=== PATIENT | male | born 1945 | race Caucasian/White ===

== ENCOUNTER → 2017-01-09 | Outpatient (CLI) | payer OTHER, MEDICARE ==
[~2017-01-09] MED LIST: BNC20 PO; LRT5 PO
[2017-01-09 13:17] LABS: URINE APPEARANCE CLEAR (CLEAR); URINE BILIRUBIN NEG (NEG); URINE COLOR YELLOW; URINE EPITHELIAL CELL AUTO 0-5 /lpf (0-5); URINE NITRITE NEG (NEG); URINE PH 5.5 (4.5-7.5); UROBILINOGEN NEG (NEG); ZZUR CULT IF INDIC CLEAN CATCH NO
[2017-01-09 13:28] LABS: MANUAL MICROSCOPIC REQUIRED? NO; REVIEW REQ? NO
[2017-01-09 13:41] LABS: URINE PROTIEN/CREAT RATIO 0.1 (0-0.2); URINE TOTAL PROTEIN 10.5 mg/dl (0-11.9)
== END | disposition home or self-care (01) ==
LOC: C.LAB1850 12:06
PROVIDERS: ATTEND Internal Medicine Nephrology
DX: N18.9 Chronic kidney disease, unspecified (principal)

== ENCOUNTER → 2017-02-12 | Outpatient (CLI) | payer OTHER, MEDICARE ==
--- NOTE | 2017-02-12 10:35 | DIAGNOSTIC IMAGING REPORT ---
RENAL ULTRASOUND CLINICAL HISTORY: Chronic kidney disease. COMPARISON STUDY: None. TECHNIQUE: Sonography of the kidneys and the urinary bladder was performed. FINDINGS: The right kidney measures 11.6 cm in maximal dimension and the left measures 12.2 cm. There is no hydronephrosis. There is moderate right and mild left renal cortical thinning. Note is made of a 1.6 cm anechoic left renal lesion consistent with a cyst. No calculi or masses are identified by sonography. The ureteral jets were visualized. Bladder was unremarkable by sonography. IMPRESSION: 1. No hydronephrosis. 2. Moderate right and mild left renal cortical thinning. 3. 1.6 cm left renal cyst. Electronically signed by: Gomez Navas M.D. 02/12/2017 10:34 AM Dictated Date/Time: 02/12/2017 10:33 AM
== END | disposition home or self-care (01) ==
LOC: C.ULTR 09:45
PROVIDERS: ATTEND Internal Medicine Nephrology
DX: N18.9 Chronic kidney disease, unspecified (principal); N28.1 Cyst of kidney, acquired

== ENCOUNTER 2023-10-11 11:20 | Observation (INO) ==
--- NOTE | 2023-10-10 08:31 | Anesthesiology Consultation ---
Date of Service October 10, 2023 Assessment & Plan (1) Encounter for pre-operative examination: - Infectious disease screening: Per assessment on 10/09/23: No known infectious disease contacts or current infectious disease symptoms. No noted recent Covid positive test result. - Cardiology visit (01/17/23): "The patient is stable from cardiovascular standpoint. He demonstrates excellent control his blood pressure in the office today. His echocardiogram notes normal systolic function and a mildly dilated, but stable ascending thoracic aorta. The aortic root is now normal in dimension. Highly complex medical issues were managed and discussed today. Plan 1. Continue current medications. 2. Consider home blood pressure monitoring. 3. Continue walking program. 4. Echocardiogram prior to next visit 5. Follow-up in 1 year (patient request)." - Preop testing: No recent labs. Will order CBC, BMP for DOS. Chart Review Chart Review: Acceptable Risk for Surgery (pending preop labs DOS) and Patient NOT seen in Pre Admission Testing History Surgery Operation Date: 10/11/23 13:00 Proposed Procedures p Left Quadricep Tendon Repair - Trevon Rahman MD Height/Weight Height: 6 ft 4 in Weight: 107.048 kg Allergies Allergy/AdvReac Type Severity Reaction Status Date / Time No Known Allergies Allergy Verified 10/09/23 16:26 Medications Home Medications Medication Instructions Recorded Confirmed Last Taken ascorbic acid (vitamin C) 500 mg 500 mg PO QAM 09/17/18 10/09/23 09/21/20 08:30 tablet (Vitamin C) aspirin 81 mg tablet,delayed 81 mg PO QPM 09/17/18 10/09/23 10/01/18 18:15 release cholecalciferol (vitamin D3) 25 1,000 unit PO QPM 09/17/18 10/09/23 10/01/18 18:15 mcg (1,000 unit) capsule (Vitamin D3) multivitamin 1 tab PO QAM 09/17/18 10/09/23 09/21/20 08:30 tamsulosin 0.4 mg capsule 0.4 mg PO BID 09/17/18 10/09/23 09/21/20 08:30 naproxen sodium 220 mg tablet 220 mg PO DAILY PRN Pain, Mild 10/02/18 10/09/23 10/01/18 18:15 (Aleve) glucosamine sulfate 2KCl 1,000 mg 2,000 mg PO QAM 07/08/20 01/31/24 01/13/21 08:30 tablet (Glucosamine Relief) turmeric root extract 500 mg 500 mg PO QAM 09/15/20 10/09/23 09/21/20 08:30 capsule hydrochlorothiazide 25 mg tablet 25 mg PO QAM 10/09/23 10/09/23 Unknown losartan 100 mg tablet 100 mg PO QPM 10/09/23 10/09/23 Unknown Past Medical History Medical History Ascending aorta dilatation Follows with Dr. Perssley, monitoring Echo 12/2022: Mildly dilated ascending aorta (3.8cm in diameter) BPH (benign prostatic hyperplasia) Chronic back pain Hypertension Osteoarthritis Sleep apnea CPAP Past Family History Family History Other No family history of adverse response to anesthesia Past Surgical History Surgical History History of cataract surgery R/L History of colonoscopy History of microdiscectomy L4-L5 History of repair of left rotator cuff History of wisdom tooth extraction S/P epidural steroid injection multiple Social History Smoking Status: Former smoker Do You Dip or Chew Tobacco: No Smoking End Date: quit 1966 Hx Alcohol Use: Yes (rarely) Alcohol type: beer alcohol intake frequency: holidays/special occasions only Hx Substance Use: No substance use type: does not use Testing Electrocardiogram Date: 10/09/23 NSR at 81bpm. "Normal ECG" unconfirmed report. Echocardiogram Date: 12/20/22 EF 55-60%. No regional wall motion abnormality. Mild concentric LVH. Mild MR. Mildly dilated ascending aorta (3.8 cm in diameter). No significant change compared with study 01/04/2022 to per report.
[~2023-10-11 11:20] MED LIST changes: -BNC20 PO; +BUPIVACAINE 0.25% PF 30 ML VIAL ONE; +DEXAMETHASONE SOD INJ 4 MG/ML VIAL ONE; +EPINEPHrine INJ 1 MG/ML AMP ONE; +LACTATED RINGER'S 1,000 ML IV SCH; -LRT5 PO; +ceFAZolin 2000MG 2,000 MG/15 ML SYR IV SCH
[2023-10-11 11:56] LABS: Basophils # (auto) 0.05 K/uL (0.00-0.20); Basophils % (auto) 0.8 %; Eosinophils # (auto) 0.28 K/uL (0.00-0.50); Eosinophils % (auto) 4.3 %; Hematocrit (blood only) 42.4 % (42.0-52.0); Hemoglobin 14.5 g/dl (14.0-18.0); Immature Granulocytes # (auto) 0.02 K/uL (0.01-0.20); Immature Granulocytes % (auto) 0.3 %; Lymphocytes # (auto) 2.13 K/uL (1.20-3.40); Lymphocytes % (auto) 32.9 %; Mean Corpuscular Hemoglobin 30.7 pg (25.0-34.0); Mean Corpuscular Hgb Conc 34.2 g/dL (32.0-36.0); Mean Corpuscular Volume 89.8 fL (80.0-100.0); Mean Platelet Volume 10.8 fL (9.4-12.4); Monocytes # (auto) 0.39 K/uL (0.11-0.59); Neutrophils # (auto) 3.61 K/uL (1.40-6.50); Neutrophils % (auto) 55.7 %; Platelet Count 215 K/uL (130-400); RDW Standard Deviation 39.3 fL (36.4-46.3); Red Blood Count 4.72 M/uL (4.70-6.10); White Blood Count 6.48 K/ul (4.8-10.8)
[2023-10-11 12:15] LABS: BUN Creatinine Ratio 19.2 (10-20); Calcium 9.1 mg/dl (8.6-10.3); Creatinine Clr Calc Pharmacy 79.4 ml/min; Est GFR (African American) 79.3 ml/min; Est GFR (Non-African American) 68.4 ml/min; Potassium 3.9 mmol/L (3.5-5.1)
--- NOTE | 2023-10-11 12:46 | History & Physical Bridge Note ---
Date of Service October 11, 2023 History & Physical Bridge Note I have examined the patient, reviewed the History & Physical and in the interval since the performance of the History & Physical I have noted the following changes of clinical significance: no changes noted
[2023-10-11] MEDS ORDERED: MIDAZOLAM HCL 1 MG/ML 2ML VIAL ONE (12:56)
[2023-10-11] MEDS ORDERED: fentaNYL citrate PF 100 MCG/2 ML VIAL ONE (12:56)
[2023-10-11] MEDS ORDERED: ATROPINE SULFATE 0.1 MG/ML 10ML SYR IV PRN (12:59)
[2023-10-11] MEDS ORDERED: ONDANSETRON INJ 2 MG/ML 2 ML VIAL IV PRN ×2 (12:59→17:14)
[2023-10-11] MEDS ORDERED: ePHEDrine sulfate 50 MG/ML AMP IV PRN (12:59)
[2023-10-11] MEDS ORDERED: fentaNYL citrate PF 100 MCG/2 ML VIAL IV PRN (12:59)
--- NOTE | 2023-10-11 15:16 | Operative Report ---
Post Operative Report Pre & Post Diagnosis Operation Date: 10/11/23 13:00 Pre-Op Diagnosis: Left Quadriceps Tendon tear Post-Op Diagnosis: Same I identified the patient and participated in the time-out.: Yes Procedure Operation Date: 10/11/23 13:00 Actual Procedures p Left Knee Quadriceps Tendon Repair(Left) - Trevon Rahman MD Surgeon Trevon Rahman MD Parasitology Teacher Meseret Onofre fellow. Nela Eric physicians social work assistant. Estimated Blood Loss 5 Findings Consistent with Post-Op Diagnosis Specimens None Drains Hemovac x 1 Anesthesia Type General Regional Complications none Disposition Accompanied Patient To Recovery: No Disposition: Recovery Room Indications Karsten is 78. He injured his left quadriceps tendon. Complete tear by MRI and exam. 1 week ago. Surgery is recommended he agreed to proceed. Description of Procedure Informed consent. Patient identified. He identified the operative site as the left knee. I marked with my initials. A preoperative surgical timeout was performed. A preop dose of IV antibiotics was given. He was taken to the operating room positioned supine on the OR table. The anesthetic was administered. A tourniquet was applied to the left thigh. The leg was prepped and draped in usual sterile fashion. DVT prophylaxis with mechanical devices intraoperatively. Postoperatively mobility mechanical devices and Eliquis. There was moderate swelling of the entire left leg with moderate bruising noted in the thigh and calf especially posteriorly. The knee had an effusion in it and a palpable defect in the quadriceps tendon. Limb exsanguinated with the Esmarch. Tourniquet inflated to 275 mmHg. A 15 cm incision was made over the anterior aspect of the knee centered over the patella. Full-thickness flaps were elevated. Prepatellar bursitis was noted and debrided. Quadriceps tendon tear was identified and opened up. The knee was evacuated of hematoma. 2 Krakw weave's with #2 FiberWire were placed through the quadriceps tendon parallel to 1 another [id number] medial and lateral. The proximal pole the patella was prepared by denuding it of soft tissue and excoriating it with a rongeur and curette. Anterior osteophyte was debrided. 3 drill holes were made into the patella central medial and lateral. The 2 central limbs of the Krakw weave's were passed through the middle hole and the 2 peripheral limbs through the peripheral holes. The tourniquet was let down and meticulous hemostasis was performed. The knee was held in full extension with proximal force on the patella. The sutures were repaired up and tied together using alternating posts and half hitches. The knee was able to be flexed to 60 degrees without difficulty. Due to the bursitis there was not much viable tissue on the anterior aspect of the patella to augment the repair. Medially the disruption went into the vastus medialis which was repaired with interrupted #1 Vicryl. The same thing laterally where it got into the vastus lateralis and the lateral retinaculum which was repaired in the same fashion. Copious irrigation was performed. Meticulous hemostasis. Small divisions were made in the patellar tendon to retrieve and tied the sutures distally. Skin was closed with 0 and then 2-0 Vicryl followed by mel. The leg was cleaned with wet and dry sponges and a soft sterile dressing was applied Xeroform 4 x 4's ABD soft wrap. Casimiro wrap from the toes to the groin. Hinged brace locked in extension. Patient was awakened from anesthesia without difficulty and taken to the recovery room in stable condition. There were no specimens or complications. Counts were correct and blood loss estimated to be 5 cc. At the conclusion of the operation spoke the patient's informed her my findings and postop instructions were given. He will be admitted to the hospital. Elevation icing. He can weight-bear as tolerated with crutches or walker. Eliquis starting in the morning. He will be rehabilitated according to the quad tendon protocol. A thin leaflet of the quad tendon remained intact posteriorly. Otherwise it was 98% completely ruptured. A small calcification within the tendon stump was debrided. I attest to the content of the Intraoperative Record and any orders documented therein. Any exceptions are noted below.
--- NOTE | 2023-10-11 15:24 | Operative Report ---
Post Operative Report Pre & Post Diagnosis Operation Date: 10/11/23 13:00 Pre-Op Diagnosis: Strain of Left Quadriceps Muscle Post-Op Diagnosis: Strain of Left Quadriceps Muscle I identified the patient and participated in the time-out.: Yes Procedure Operation Date: 10/11/23 13:00 Actual Procedures p Left Knee Quadriceps Tendon Repair(Left) - Trevon Rahman MD Surgeon Trevon Rahman MD Nursing Secretary Meseret Onofre fellow. Nela Eric physicians customer care assistant. Estimated Blood Loss 5 Findings Consistent with Post-Op Diagnosis Same as postoperative diagnosis. Specimens None Description of Procedure Please see detailed operative note. I attest to the content of the Intraoperative Record and any orders documented therein. Any exceptions are noted below.
--- NOTE | 2023-10-11 16:06 | Anesthesiology Progress Note ---
Date of Service October 11, 2023 Anesthesia Post Procedure Vital Signs Vital Signs: Temp Pulse Pulse Resp BP BP Pulse Ox 10/11/23 16:00 75 12 161/92 H 97 10/11/23 15:50 67 16 160/84 H 96 10/11/23 15:40 73 13 163/87 H 99 10/11/23 15:30 73 12 157/87 H 100 10/11/23 15:23 36.3 C L 71 14 167/86 H 98 10/11/23 11:55 10/11/23 11:55 37 C 83 18 156/84 H 97 O2 Del Method O2 Flow Rate 10/11/23 16:00 Room Air 10/11/23 15:50 Room Air 10/11/23 15:40 Oxymask 4 10/11/23 15:30 Oxymask 4 10/11/23 15:23 Oxymask 6 10/11/23 11:55 Room Air 10/11/23 11:55 Room Air Pain Intensity Left Leg: Pain Intensity: 6 Transfer of Care Handoff Completed per policy Notes Mental Status: alert / awake / arousable Patient Amnestic to Procedure: Yes Nausea / Vomiting: adequately controlled Pain: adequately controlled Airway Patency, RR, SpO2: stable & adequate BP & HR: stable & adequate Hydration State: stable & adequate Anesthetic Complications: no major complications apparent
[2023-10-11] MEDS ORDERED: NALOXONE HCL 0.4 MG/1 ML VIAL/CARP IV PRN (17:14)
[2023-10-11] MEDS ORDERED: hydrALAZINE HCL 20 MG/ML VIAL IV PRN (17:14)
[2023-10-11] MEDS ORDERED: bisacodyL 10 MG SUPP PR PRN (17:14)
[2023-10-11] MEDS ORDERED: HYDROmorphone INJ 1 MG/ML SYRINGE IV PRN (17:14)
[2023-10-11] MEDS ORDERED: METOCLOPRAMIDE HCL INJ 5 MG/ML 2 ML VIAL IV PRN (17:14)
[2023-10-11] MEDS ORDERED: oxyCODONE HCL IR 5 MG TAB (IMMEDIATE RELEASE) PO PRN (17:14)
[2023-10-11] MEDS ORDERED: traMADol HCL 50 MG TABLET PO PRN (17:14)
[2023-10-11] MEDS ORDERED: HYDROmorphone INJ 0.5 MG/0.5 ML SYR IV PRN (17:14)
[2023-10-11] MEDS ORDERED: MAGNESIUM HYDROXIDE SUSP 30 ML UDC PO PRN (17:14)
[2023-10-11] MEDS: SODIUM CHLORIDE 0.9% 1,000 ML IV SCH (17:50)
[2023-10-11] MEDS: TAMSULOSIN HCL 0.4 MG CAP PO SCH (20:10)
[2023-10-11] MEDS: DOCUSATE SODIUM 100 MG CAP PO SCH (20:11)
[2023-10-11] MEDS ORDERED: SENNA 8.6 MG TAB PO SCH (21:00)
[2023-10-11] MEDS ORDERED: ASPIRIN 81 MG ECTAB PO SCH (21:00)
[2023-10-11] MEDS ORDERED: CHOLECALCIFEROL 25 MCG (1000 UNITS) TAB PO SCH (21:00)
[2023-10-11] MEDS ORDERED: LOSARTAN POTASSIUM 50 MG TAB PO SCH (21:00)
[2023-10-11] MEDS: ceFAZolin 2000MG 2,000 MG/15 ML SYR IV SCH (21:49)
[2023-10-11] MEDS: ACETAMINOPHEN 500 MG TAB PO SCH (21:49)
--- OUTSIDE RECORDS SUMMARY | 2023-10-12 00:55 | External Medical Summary | Continuity of Care Document ---
Author Name Unknown Organization [facility] [address] [place], [place] [address] Address [address] [place] [id number] Care Team Providers Care Peanut Butter Maker Name Role Phone Chau Yusuf Primary Care Physician [phone] Encounter [facility] [id number] Date(s): 10/07/23 - 10/07/23 [facility] [address] [id number] [facility] [address] [place] [id number] Encounter Diagnosis Rupture of distal quadriceps muscle(Discharge Diagnosis) - 10/07/23 Discharge Disposition: Home or Self Care Attending Physician: RORY Reinoso, Ivory Allergies, Adverse Reactions, Alerts No Known Medication Allergies Medications amLODIPine 2.5 mg oral tablet Start: 08/08/21 15:54:00 EST Start Date: 08/08/21 Status: Ordered aspirin 81 mg oral delayed release tablet Start: 10/21/17 12:54:00 Start Date: 10/21/17 Status: Ordered Eliquis 2.5 mg oral tablet Start: 10/09/23 14:26:00 EST, 1 tab, PO, bid, Disp# 28 tab, Refills: 1, Pharmacy: [facility]/pharmacy #[id number], Earliest Fill Date: 10/09/23 Start Date: 10/09/23 Stop Date: 10/25/23 Status: Ordered Medrol Dosepak 4 mg oral tablet Start: 03/14/20 13:33:00 EDT, See Instructions, Disp# 21 tab, Take as directed on package labeling for 6 days., Pharmacy: [facility]/pharmacy #[id number] Start Date: 03/14/20 Stop Date: 03/20/20 Status: Ordered Multi Vitamin+ Start: 10/21/17 12:53:00 Start Date: 10/21/17 Status: Ordered Naprosyn 500 mg oral tablet Start: 10/21/17 13:29:00, 1 tab, PO, bid, Disp# 50 tab, Refills: 1, PRN: as needed for pain, Pharmacy: [facility]/pharmacy #[id number] Start Date: 10/21/17 Status: Ordered Southold-3 oral capsule Start: 10/21/17 12:53:00 Start Date: 10/21/17 Status: Ordered oxyCODONE 5 mg oral tablet Start: 10/09/23 14:24:00 EST, See Instructions, Disp# 10 tab, Refills: 0, 1-2 tabs po every 4-6 hours, Note to Pharmacy: initial therapy, PRN: as needed for pain, Stop: 10/14/23 14:25:00 EST, Pharmacy: [facility]/pharmacy #[id number], Earliest Fill Date: 10/09/23 Start Date: 10/09/23 Stop Date: 10/14/23 Status: Ordered tamsulosin 0.4 mg oral capsule Start: 10/21/17 12:53:00 Start Date: 10/21/17 Status: Ordered turmeric Start: 09/15/20 8:34:00 EST Start Date: 09/15/20 Status: Ordered Vitamin A, D oral capsule Start: 10/21/17 12:54:00 Start Date: 10/21/17 Status: Ordered Vitamin C Start: 10/21/17 12:53:00 Start Date: 10/21/17 Status: Ordered Mental Status 10/07/23 Barriers to Learning one year None evide nt Mandatory Health Literacy Documentation Yes Health Literacy Communication Barriers N ever Primary Language Tunisian Problem List Condition Confirmation Course Effective Dates Status H ealth Status Informant Right hip pain Confirmed Active Inflammation of right sacroiliac joint. Confirmed Active Lumbago Confirmed Active Lumbar radiculopathy Confirmed Active Left leg pain Confirmed Active Quadriceps tendon rupture Confirmed Active Diagnosis Diagnosis Type Effective Dates Health Status Clinical Service Informant Rupture of distal quadriceps muscle Discharge Diagnosis 10/07/23 Vital Signs Most recent to oldest [Reference Range]: 1 Height 193 cm (10/07/23 2:57 PM) Patient Weight 108.8 kg (10/07/23 2:57 PM) Body Mass Index 29.21 kg/m2 (10/07/23 2:57 PM) Social History Social History Type Response Smoking Status Never smoked cigaret lily Sex Male Patient Care team information Care Team Personnel Name: MD Yusuf Brandon M Position: Referring Member Role: Primary Care Provider Address: Address: [facility]-[address], [address] [place] [address] [place] Care Team Related Persons Name: MORELIA GROVER Address: home [address] [place] [address] [facility] [phone]
[2023-10-12] MEDS: SODIUM CHLORIDE 0.9% 1,000 ML IV SCH (03:49)
[2023-10-12] MEDS: ACETAMINOPHEN 500 MG TAB PO SCH ×2 (05:34→13:32)
[2023-10-12] MEDS: ceFAZolin 2000MG 2,000 MG/15 ML SYR IV SCH (05:34)
[2023-10-12 07:15] LABS: Hematocrit (blood only) 35.4 % (42.0-52.0); Hemoglobin 12.5 g/dl (14.0-18.0); Mean Corpuscular Hgb Conc 35.3 g/dL (32.0-36.0); Mean Corpuscular Volume 87.8 fL (80.0-100.0); Mean Platelet Volume 11.4 fL (9.4-12.4); Platelet Count 208 K/uL (130-400); RDW Coefficient of Variation 11.9 % (11.5-14.5); RDW Standard Deviation 38.5 fL (36.4-46.3); Red Blood Count 4.03 M/uL (4.70-6.10); White Blood Count 12.15 K/ul (4.8-10.8)
[2023-10-12 07:26] LABS: Creatinine Clr Calc Pharmacy 82.5 ml/min; Est GFR (African American) 83.2 ml/min; Est GFR (Non-African American) 71.8 ml/min; Potassium 4.1 mmol/L (3.5-5.1)
[2023-10-12] MEDS: DOCUSATE SODIUM 100 MG CAP PO SCH (07:57)
[2023-10-12] MEDS: TAMSULOSIN HCL 0.4 MG CAP PO SCH (07:57)
[2023-10-12] MEDS ORDERED: hydroCHLOROthiazide 25 MG TAB PO SCH (09:00)
[2023-10-12] MEDS ORDERED: APIXABAN 2.5 MG TAB PO SCH (09:00)
[2023-10-12] MEDS ORDERED: ASCORBIC ACID 500 MG TAB PO SCH (09:00)
[2023-10-12] MEDS ORDERED: MULTIVITAMIN TAB PO SCH (09:00)
[2023-10-12] MEDS ORDERED: NON-FORMULARY MEDICATION (Turmeric Root Extract 500 mg Capsule) PO SCH (09:00)
--- NOTE | 2023-10-12 17:56 | Orthopedic Progress Note ---
Date of Service October 12, 2023 Assessment & Plan (1) Quadriceps tendon rupture: Plan: Doing well. Drain pulled. Stable for discharge. Reviewed follow-up. Medications and activities. He will be on Eliquis pain medicine and stool softener as well as resume his regular medications. He will follow-up next week. Elevate foot above heart. Ice. Leave brace intact. Do not walk without brace crutches or walker. Set up physical therapy. Surgical results are discussed. If there is any problems with pain fevers swelling tingling numbness or any other problems or questions call the office or go to the emergency room. Admission and Anticipated Discharge Date Admission Date: October 11, 2023 Subjective Doing well. Pain well-controlled. Up with PT. Physical Exam Physical Exam: Brace adjusted as it felt tight. Drain is pulled. DP and PT pulses are 2+. Sensation intact in the foot. 5 out of 5 ankle and toe plantarflexion dorsiflexion inversion eversion strength. Dressing is clean and dry. Results & Data Vital Signs (Past 12 Hours) Vital Signs Temp Pulse Pulse Resp BP Pulse Ox O2 Del Method 10/12/23 11:00 77 20 117/68 94 Room Air 10/12/23 07:15 36.4 C L 78 18 144/67 H 95 Room Air Laboratory Results 10/12/23 Range/Units 06:41 WBC 12.15 H (4.8-10.8) K/ul RBC 4.03 L (4.70-6.10) M/uL Hgb 12.5 L (14.0-18.0) g/dl Hct 35.4 L (42.0-52.0) % MCV 87.8 (80.0-100.0) fL MCH 31.0 (25.0-34.0) pg MCHC 35.3 (32.0-36.0) g/dL RDW Std Deviation 38.5 (36.4-46.3) fL RDW Coeff of Abdi 11.9 (11.5-14.5) % Plt Count 208 (130-400) K/uL MPV 11.4 (9.4-12.4) fL Sodium 138 (136-145) mmol/L Potassium 4.1 (3.5-5.1) mmol/L Chloride 106 (98-107) mmol/L Carbon Dioxide 26 (21-32) mmol/L Anion Gap 6 (3-11) BUN 25 H (6-23) mg/dl Creatinine 1.00 (0.6-1.4) mg/dl Est Cr Clr Drug Dosing 82.5 ml/min Est GFR ( Amer) 83.2 ml/min Est GFR (Non-Af Amer) 71.8 ml/min BUN/Creatinine Ratio 25.0 H (10-20) Glucose 284 H (70-99(Fasting)) mg/dl Calcium 8.0 L (8.6-10.3) mg/dl
--- OUTSIDE RECORDS SUMMARY | 2023-10-12 18:01 | External Medical Summary | Continuity of Care Document ---
Author Name Unknown Organization [facility] [id number] Address [address] [place] [address] [phone] Care Team Providers Care Trading Assistant Name Role Phone Chau Yusuf Primary Care Physician [phone] [id number] Date(s): 10/09/23 - 10/09/23 [facility] [address] [id number] [facility] [address] [place] [id number] Encounter Diagnosis Quadriceps tendon rupture(Discharge Diagnosis) - 10/09/23 Discharge Disposition: Home or Self Care Attending Physician: MD Josiah, Trevon Lanza Referring Physician: MD Josiah, Trevon Lanza Allergies, Adverse Reactions, Alerts No Known Medication Allergies Medications amLODIPine 2.5 mg oral tablet Start: 08/08/21 15:54:00 EST Start Date: 08/08/21 Status: Ordered aspirin 81 mg oral delayed release tablet Start: 10/21/17 12:54:00 Start Date: 10/21/17 Status: Ordered Eliquis 2.5 mg oral tablet Start: 10/09/23 14:26:00 EST, 1 tab, PO, bid, Disp# 28 tab, Refills: 1, Pharmacy: [facility]/pharmacy #[id number], Earliest Fill Date: 10/09/23 Start Date: 10/09/23 Stop Date: 10/25/23 Status: Ordered Medrol Dosepak 4 mg oral tablet Start: 03/14/20 13:33:00 EDT, See Instructions, Disp# 21 tab, Take as directed on package labeling for 6 days., Pharmacy: [facility]/pharmacy #[id number] Start Date: 03/14/20 Stop Date: 03/20/20 Status: Ordered Multi Vitamin+ Start: 10/21/17 12:53:00 Start Date: 10/21/17 Status: Ordered Naprosyn 500 mg oral tablet Start: 10/21/17 13:29:00, 1 tab, PO, bid, Disp# 50 tab, Refills: 1, PRN: as needed for pain, Pharmacy: [facility]/pharmacy #[id number] Start Date: 10/21/17 Status: Ordered [place]-3 oral capsule Start: 10/21/17 12:53:00 Start Date: 10/21/17 Status: Ordered oxyCODONE 5 mg oral tablet Start: 10/09/23 14:24:00 EST, See Instructions, Disp# 10 tab, Refills: 0, 1-2 tabs po every 4-6 hours, Note to Pharmacy: initial therapy, PRN: as needed for pain, Stop: 10/14/23 14:25:00 EST, Pharmacy: [facility]/pharmacy #[id number], Earliest Fill Date: 10/09/23 Start Date: 10/09/23 Stop Date: 10/14/23 Status: Ordered tamsulosin 0.4 mg oral capsule Start: 10/21/17 12:53:00 Start Date: 10/21/17 Status: Ordered turmeric Start: 09/15/20 8:34:00 EST Start Date: 09/15/20 Status: Ordered Vitamin A, D oral capsule Start: 10/21/17 12:54:00 Start Date: 10/21/17 Status: Ordered Vitamin C Start: 10/21/17 12:53:00 Start Date: 10/21/17 Status: Ordered Mental Status 10/09/23 Barriers to Learning one year None evide nt Mandatory Health Literacy Documentation Yes Health Literacy Communication Barriers N ever Primary Language Nepali Problem List Condition Confirmation Course Effective Dates Status H ealth Status Informant Right hip pain Confirmed Active Inflammation of right sacroiliac joint. Confirmed Active Lumbago Confirmed Active Lumbar radiculopathy Confirmed Active Left leg pain Confirmed Active Quadriceps tendon rupture Confirmed Active Diagnosis Diagnosis Type Effective Dates Health Status Clinical Service Informant Quadriceps tendon rupture Discharge Diagnosis 10/09/23 Procedures Procedure Date Related Diagnosis Body Site Status Repair of quadriceps tendon 1 10/11/23 Completed 1Left Vital Signs Most recent to oldest [Reference Range]: 1 Height 193 cm (10/09/23 12:54 PM) Patient Weight 108 kg (10/09/23 12:54 PM) Body Mass Index 28.99 kg/m2 (10/09/23 12:54 PM) Temperature [36.5-37.9 DegC] 36.6 DegC (10/09/23 12:54 PM) Heart Rate 78 bpm (10/09/23 12:54 PM) Respiratory Rate 18 br/min (10/09/23 12:54 PM) Blood Pressure 140/78mmHg (10/09/23 12:54 PM) Cuff Pulse Pressure 62 mmHg (10/09/23 12:54 PM) Social History Social History Type Response Smoking Status Never smoked cigaret lily Sex Male Cardiology * Contributor_system, [id number]: VERIFY, PERFORM Event Display: EKG Authored Date: [id number] Please click on link to see image. Pre-OP H & P * RORY Eric, Nela R: MODIFY, PERFORM Event Display: Pre-OP H & P Authored Date: [id number] Name:BRAYDON GROVER Patient Number:[id number] :1945 Date of Service:10/09/2023 Chief Complaint preop left quad tendon tear History of Present Illness Bette Altman presents today forevaluation of left knee injury which occurred October 04.. The patient was walking outside on mud and snow with smooth-bottomed sneakerswhich caused hisleft knee to collapse on 10/04/2023. He states that his knee felt that it would give out, which caused him to attempt to hold it in place. He was not seen in the ER, and met with Ivory Reinoso on 10/07/2023. He states that weightbearing causes him to have instability. The patient has been taking 81mg of aspirin. He states that his health is overall good. The patient has an enlarged prostate. The patient is seeing a Urologist soon for this issue. The patient had micro-disc surgery and two wrist fractures previously. Review of Systems Denies any recent cough, cold, fevers, chills or flulike symptoms. He denies any lightheadedness, dizziness, syncopal episodes, headaches, migraines or seizures. Denies any bleeding or clotting disorders or history of DVT or pulmonary embolism. Denies any recent hospitalizations. Denies any historyof metal sensitivity, latex allergy or MRSA. Denies any shortness of breath or chest pain. Denies abdominal pain, heartburn, indigestion, nausea, vomiting, diarrhea or constipation. Denies any urinary tract infections. Denies any hearing or vision changes. Denies any dental problems. He does have an enlarged prostate, currently being worked up. Does cause some urinary retention. Physical Exam Vitals & Measurements T:36.6C HR:78(Monitored) RR:18 BP:140/78 SpO2:95% HT:193cm WT:108kg WT:108.000kg(Dosing) BMI:28.99 Vitals:Last Updated 10/09/23 12:54 Date Temp BP Location Pulse RR SpO2 Pain 10/09/23 36.6 140/78 78 18 95 6 10/07/23 7 05/02/23 142/80 75 97 Height and Weight:Last Updated 10/09/23 12:54 Date BMI Wt(kg) Wt(lb) Method Ht(cm) (ft-in) Method 10/09/23 28.99 108 238 Standing Scale 193 6-4 10/07/23 29.21 108.8 239 Standing Scale 193 6-4 Standing 04/01/23 28.19 105 231 Standing Scale 193 6-4 General:Well-dressed, well-nourished. Normal mood and affect. Alert and oriented x3. HEENT:Head: Atraumatic, normocephalic. Eyes: Extraocular movements intact, pupils equal round and reactive to light, sclera normal. Ears: Ears grossly normal, TMs are clear normal light reflex.Nose: Nares are patent bilaterally. Throat: Oropharynx clear mucous membranes moist good dentition uvula midline. Neck:Supple, no lymphadenopathy, nontender palpation, full range of motion. Cardiac:Regular rate and rhythm, normal S1, S2. No murmurs, rubs or gallops appreciated. Lungs:Clear to auscultation bilaterally. No adventitious sounds. No accessory muscle use. Abdomen:Soft, nontender, nondistended, normal bowel sounds heard in all 4 quadrants. Extremities: Focusing on the patient'sLEFTlower extremity: TraceDP andTracePT pulses Capillary refill less than 2 seconds Sensationintact to light touch Straight leg raise with significant lag. There is extensive bruising present. Inability and weakness to extend the right knee. Knee (left)ROM: 0/ 0/ 100 ModerateEffusion 1+ pretibial edema Ligament exam: ACLIntact,Endpoint intact PCLIntact,Endpoint intact MCLIntact,Endpoint intact LCLIntact,Endpoint intact Tenderness at the medial and lateral retinaculum Tenderness at the superior pole of the patella Palpable quad defect Posterior drawer intact Diagnostic Results X-ray imaging: I reviewed X-Rays of theEDUARDO Knee from 10/07/2023 which shows Anterior patellar spurring. Ossicle by superiorpatella by 1cm. There is swelling at thesuperior pole. No fracture or arthritis. MRI reviewed. Near completequadriceps tendon rupture with retraction. Report noted. There is some meniscal pathology present andsome ligament strains as well. Assessment/Plan 1.Quadriceps tendon rupture Patient is scheduled for a left knee quadriceps tendon repair with Dr. Rahman on October 11, 2023. Risk and complications of the procedure were explained to the patient and include but are not limited to infection, pain, bleeding, scarring, nerve or blood vessel damage, wound problems, weakness, stiffness, incomplete relief of symptoms, hardware failure, rerupture, tendon or ligament injury,blood clots, embolisms, heart attack, stroke or . All questions were answered and informed consent was obtained by Dr. Rahman. He does not need any preoperative laboratory work or medicalclearance prior to surgery. We did perform an EKG today in the office. He was given a prescription for oxycodone for use for postoperative pain control. The [place] PDMP was checked with no issues identified. This electronically sent to his pharmacy. He we will also use Eliquis 2.5 mg p.o. twice daily for DVT prophylaxis for 2 to 4 weeks after surgery. This prescription was electronically sent to his pharmacy. Postoperative course was discussed. He will follow-up with myself on October 15 at 11:30 AM for a dressing change. He is going to do outpatient physical therapy closer to home. He is in a knee immobilizer and using a walker. He was instructed on usage of the CHG wipes. All questions were answered. He understands and agrees with the plan. This chart was completed utilizing [employer] voice recognition software. Grammatical errors, random word insertions, pronoun errors, and in complete sentences are an occasional consequence of the system. Any questions or concerns about the content, text, or information contained within the body of this dictation should be addressed directly to the provider for clarification. Problem List/Past Medical History Ongoing Inflammation of right sacroiliac joint. Left leg pain Lumbago Lumbar radiculopathy Quadriceps tendon rupture Right hip pain HTN Sleep Apnea with use of CPAP GERD Procedure/Surgical History Micro-disc surgery Cataract surgery Medications Home amLODIPine(amLODIPine 2.5 mg oral tablet) apixaban(Eliquis 2.5 mg oral tablet), 2.5 mg= 1 tab, PO, bid, 1 refills ascorbic acid(Vitamin C) aspirin(aspirin 81 mg oral delayed release tablet) methylPREDNISolone(Medrol Dosepak 4 mg oral tablet), See Instructions multivitamin(Multi Vitamin+) multivitamin(Vitamin A, D oral capsule) naproxen(Naprosyn 500 mg oral tablet), 500 mg= 1 tab, PO, bid, PRN, 1 refills omega-3 polyunsaturated fatty acids([place]-3 oral capsule) oxyCODONE(oxyCODONE 5 mg oral tablet), See Instructions, PRN tamSULOsin(tamsulosin 0.4 mg oral capsule) turmeric Allergies No Known Medication Allergies Social History Smoking Status Never smoked cigarettes Denies ETOH use. Denies recreational drug use. Lives with . Electronic Signature on File Electronically Reviewed/Signed by: Nela Eric PA-C Author Signature Dt/Tm:10/10/2023 09:16AM Division of Sports Medicine Electronically Reviewed/Signed by: Trevon Rahman MD Cosigner Signature Dt/Tm: 10/10/2023 03:53 PM Division of Sports Medicine [facility] Ortho Outpt Note * Juan Alvarado: MODIFY, MODIFY, MODIFY, MODIFY, MODIFY, MODIFY, PERFORM MD Josiah, Trevon Lanza: MODIFY Event Display: Ortho Outpt Note Authored Date: [id number] Name:BRAYDON GROVER Patient Number:[id number] :1945 Date of Service:10/09/2023 CHIEF COMPLAINT: Discussion of LEFT quadricepssurgery on 10/11/2023 HPI: Bette Altman presents today forevaluation of left knee injury which occurred October 04.. The patient was walking outside on mud and snow with smooth-bottomed sneakerswhich caused hisleft knee to collapse on 10/04/2023. He states that his knee felt that it would give out, which caused him to attempt to hold it in place. He was not seen in the ER, and met with Ivory Reinoso on 10/07/2023. He states that weightbearing causes him to have instability. Thepatient has been taking 81mg of aspirin. He states that his health is overall good. The patient has an enlarged prostate. The patient is seeing a Urologist soon for this issue. The patient had micro-disc surgery and two wrist fractures previously. ROS: Refer to the HPI. The patient has not had a history of MRSA, STAPH infections, DM, or Cancer. No bleeding blood clots. PHYSICAL EXAM: Focusing on the patient'sLEFTlower extremity: TraceDP andTracePT pulses Capillary refill less than 2 seconds Sensationintact to light touch Straight leg raise with significant lag. There is extensive bruising present. Inability and weakness to extend the right knee. Knee (left)ROM: 0/ 0/ 100 ModerateEffusion 1+ pretibial edema Ligament exam: ACLIntact,Endpoint intact PCLIntact,Endpoint intact MCLIntact,Endpoint intact LCLIntact,Endpoint intact Tenderness at the medial and lateral retinaculum Tenderness at the superior pole of the patella Palpable quad defect Posterior drawer intact RADIOGRAPHY: X-ray imaging: I reviewed X-Rays of theEDUARDO Knee from 10/07/2023 which shows Anterior patellar spurring. Ossicle by superiorpatella by 1cm. There is swelling at thesuperior pole. No fracture or arthritis. MRI reviewed. Near completequadriceps tendon rupture with retraction. Report noted. There is some meniscal pathology present andsome ligament strains as well. IMPRESSION: 78 year old male with left kneequadriceps tendon rupture PLAN: Patient should only walk with the brace on, and use his walker. LATISHA. The patient has elected to proceed with surgical interventionat this time, Left knee quadriceps tendon repair. Patient was educated about surgical procedure, and treatment options were discussed, as well as risks, benefits and the recovery process. The patient hasno issues withbleeding, blood clots, staph infections or MRSA. Discussed with the patient that he would be using Eliquis after surgery. He has been taking aspirin daily. Calf nontender. Informed consent was obtained, and the patient signed a consent form for Left knee quadriceps tendon repair. -Follow up as scheduled. ATTESTATION: Juan Taylor, have scribed for, and in the presence of, Trevon Rahman, on this date,10/09/2023 13:20:29. Electronic Signature on File Electronically Reviewed/Signed by: Juan Alvarado Author Signature Dt/Tm:10/09/2023 02:11 PM Electronically Reviewed/Signed by: Trevon Rahman MD Cosigner Signature Dt/Tm: 10/09/2023 03:02 PM Division of Sports Medicine BF Patient Care team information Care Team Personnel Name: MD Yusuf Brandon M Position: Referring Member Role: Primary Care Provider Address: Address: [facility], [address] [place] [address] [place] Care Team Related Persons Name: MORELIA GROVER Address: home [address] [place] [address] [phone]
--- NOTE | 2023-10-15 16:48 | Discharge Summary ---
Date of Service October 15, 2023 Admission HPI Per Admitting Provider He says that on Saturday he fell and his knee got caught behind him and was hyperflexed. He immediately knew something was wrong. He has had pain, swelling, bruising and difficulty ambulating. He feels like his knee is unstable. He is having difficulty moving his knee. Admission Exam Per Admitting Provider Patient has moderate swelling, bruising. Palpable defect over quad tendon. Pt unable to fully bear weight or extend his knee. Principal Diagnosis Left quadriceps tendon repair Discharge Exam Brace adjusted as it felt tight. Drain is pulled. DP and PT pulses are 2+. Sensation intact in the foot. 5 out of 5 ankle and toe plantarflexion dorsiflexion inversion eversion strength. Dressing is clean and dry. Discharge Data Allergies Allergy/AdvReac Type Severity Reaction Status Date / Time No Known Allergies Allergy Verified 10/11/23 11:51 Procedures Performed Operation Date: 10/11/23 13:00 Actual Procedures p Left Knee Quadriceps Tendon Repair(Left) - Trevon Rahman MD Ordered Studies 10/11/23 05:00 US - OR guided needle placemen Routine Hospital Course (1) Quadriceps tendon rupture: Doing well. Drain pulled. Stable for discharge. Reviewed follow-up. Medications and activities. He will be on Eliquis pain medicine and stool softener as well as resume his regular medications. He will follow-up next week. Elevate foot above heart. Ice. Leave brace intact. Do not walk without brace crutches or walker. Set up physical therapy. Surgical results are discussed. If there is any problems with pain fevers swelling tingling numbness or any other problems or questions call the office or go to the emergency room. Total Time Total Time Spent Total Time Spent (In Minutes): 10 minutes documenting Discharge Plan Discharge Items Patient Disposition: Home - Self-Care Reason For Visit: POST OP LEFT KNEEE QUADRICEPS TENDON REPAIR Discharge Diagnosis: left quadriceps tendon tear Activity: Per Instructions section Weightbearing Comment: with brace on at all times; lock straight, with crutches or walker Non-emergency contact: Surgeon Call non-emergency contact if: you have any medication questions, your symptoms worsen, your pain is not controlled, your temperature is above 101, your wound has increased redness and your wound has increased drainage Follow-up/Referrals: Nela Eric PA-C [Physician [place]] - 10/15/23 11:30 am Chau Yusuf [Primary Care Provider] - Diet: Regular Addtl Attending Provider Instructions: DIET: * Resume previous diet. MEDICATIONS: * Please take your prescriptions as instructed at your pre-op appointment and/or see medication discharge instructions listed above. * If concerns develop, call your physician's office at . SPECIAL CARE INSTRUCTIONS: * Ice to left knee as needed for pain/swelling * Elevate left leg above heart to relieve pain/swelling. * Keep brace on left leg at all times * You may put weight on your left leg as tolerated with brace in place. * Use crutches or walker at all times with walking. * Keep dressing clean, dry, intact until your follow up appointment. * Allowed for full ankle range of motion left ankle and left hip. * Your surgical extremity may be discolored due to prepping agents used on the skin. A bluish-green tint is a normal variant and should not cause alarm. Call your doctor at [phone] if: * Temperature above 101 degrees * Pain not relieved by pain medicine ordered * There is increased drainage or redness from any incision * You have any unanswered questions, problems or concerns. FOLLOW UP VISIT: * If not already scheduled, please call the office at to schedule a follow-up appointment. Pending Studies at Discharge: No Stand-Alone Forms: My [facility] Medications and DC Order Prescriptions: Continued multivitamin Tablet 1 tab PO QAM aspirin 81 mg Tablet,Delayed Release (Dr/Ec) 81 mg PO QPM ascorbic acid (vitamin C) [Vitamin C] 500 mg Tablet 500 mg PO QAM tamsulosin 0.4 mg Capsule 0.4 mg PO BID cholecalciferol (vitamin D3) [Vitamin D3] 1,000 unit Capsule 1,000 unit PO QPM glucosamine sulfate 2KCl [Glucosamine Relief] 1,000 mg Tablet 2,000 mg PO QAM turmeric root extract 500 mg Capsule 500 mg PO QAM hydrochlorothiazide 25 mg Tablet 25 mg PO QAM losartan 100 mg Tablet 100 mg PO QPM Held naproxen sodium [Aleve] 220 mg Tablet 220 mg PO DAILY PRN (Reason: Pain, Mild) Hold Instructions: Resume on 10/26/23. hold until completed with Eliquis Discharge Orders: Discharge Order (Routine); Ordered 10/12/23 Ordered By: Trevon Ortiz/Other Patient Handouts: DVT Post Op Prevention Admission Data Admit Date/Time: 10/11/23 15:28 Attending Provider: Trevon Rahman Admit Provider: Trevon Rahman Primary Care Provider: Chau Yusuf Other Interventions: Discharge Summary Assessment (RN) Last Done: 10/12/23 17:59
== END 2023-10-12 18:36 | disposition home or self-care (01) ==
LOC: ASU 11:20 → 3W 11:20

== ENCOUNTER 2024-02-28 12:33 | Inpatient (IN) ==
[2024-02-28 13:20] LABS: Basophils # (auto) 0.03 K/uL (0.00-0.20); Basophils % (auto) 0.2 %; Eosinophils # (auto) 0.01 K/uL (0.00-0.50); Eosinophils % (auto) 0.1 %; Hematocrit (blood only) 40.9 % (42.0-52.0); Hemoglobin 14.5 g/dl (14.0-18.0); Immature Granulocytes # (auto) 0.06 K/uL (0.01-0.20); Immature Granulocytes % (auto) 0.4 %; Lymphocytes % (auto) 7.4 %; Mean Corpuscular Hemoglobin 30.7 pg (25.0-34.0); Mean Corpuscular Hgb Conc 35.5 g/dL (32.0-36.0); Mean Corpuscular Volume 86.7 fL (80.0-100.0); Mean Platelet Volume 11.3 fL (9.4-12.4); Monocytes # (auto) 1.05 K/uL (0.11-0.59); Monocytes % (auto) 6.5 %; Neutrophils # (auto) 13.87 K/uL (1.40-6.50); Neutrophils % (auto) 85.4 %; Platelet Count 159 K/uL (130-400); RDW Coefficient of Variation 12.5 % (11.5-14.5); RDW Standard Deviation 39.6 fL (36.4-46.3); Red Blood Count 4.72 M/uL (4.70-6.10); White Blood Count 16.22 K/ul (4.8-10.8)
[2024-02-28 13:42] LABS: Albumin Level 3.8 gm/dl (3.4-5.0); Anion Gap 7 (3-11); Bilirubin,Total 0.9 mg/dl (0.2-1.0); Calcium 9.6 mg/dl (8.6-10.3); Carbon Dioxide 27 mmol/L (21-32); Chloride 99 mmol/L (98-107); Magnesium 1.9 mg/dl (1.7-2.4); Potassium 3.4 mmol/L (3.5-5.1); Sodium 133 mmol/L (136-145)
[2024-02-28 13:48] LABS: Alanine Aminotransferase 20 U/L (7-52); Albumin Globulin Ratio 1.1 (0.9-2); Alkaline Phosphatase 75 U/L (34-104); Aspartate Aminotransferase 21 U/L (13-39); BUN Creatinine Ratio 29.6 (10-20); Blood Urea Nitrogen 40 mg/dl (6-23); Est GFR (African American) 57.9 ml/min; Est GFR (Non-African American) 49.9 ml/min; Globulin 3.6 gm/dl (2.5-4.0); Glucose 242 mg/dl (70-99(Fasting)); INR 1.1 (0.9-1.1); Partial Thromboplastin Ratio 1.2; Partial Thromboplastin Time 31 Seconds (21-31); Prothrombin Time 11.6 Seconds (9.0-12.0); Total Protein 7.4 gm/dl (6.0-8.3)
[2024-02-28 13:51] LABS: Troponin I High Sensitivity 12.7 pg/ml (0-20)
--- NOTE | 2024-02-28 14:16 | XRay Report ---
SINGLE VIEW CHEST CLINICAL HISTORY: Sepsis. FINDINGS: 2 PA chest radiographs are obtained. No prior studies are available for comparison at the t bessy of dictation. The cardiomediastinal silhouette is top normal for projection. There is mild left b asilar atelectasis. The lungs and pleural spaces are otherwise clear. No pneumothorax is seen. The sk eletal structures are osteopenic. The bony thorax is grossly intact. Mild degenerative change is note d in the shoulders and spine. IMPRESSION: No active disease in the chest. ACT 112: Negative or not required by law. Electronically signed by: Navid Franco M.D. 02/28/2024 2:15 PM
[2024-02-28] MEDS ORDERED: VANCOMYCIN HCL 2,750 MG in SODIUM CHLORIDE 0.9% 500 ML IV ONE (14:42)
[2024-02-28] MEDS ORDERED: VANCOMYCIN CONSULT ACTIVE PRN (14:42)
--- NOTE | 2024-02-28 14:52 | Emergency Department Note ---
Impression & Plan Sepsis, Open wound of right foot, Leukocytosis, Elevated procalcitonin, Acute hypokalemia ED Provider Note HISTORY OF PRESENT ILLNESS: Patient is a 78-year-old male presenting with a right foot wound. Patient reports for the last 6 weeks he has been following with the industrial engineering for a wound on his right sole of the foot. Reports it initially started as a callus and he followed with the industrial engineering and they were just monitoring it. He was started on doxycycline 3 days ago. He states in the last few days he has been developing fevers and rigors at home. He had a fever up to 102 2 days ago. Fever started 3 days ago. He has had significant swelling and erythema developed diffusely on his foot and his industrial engineering referred him to the ER for IV antibiotics. Patient denies any abdominal pain, but does report nausea and some dry heaving. Denies any chest pain or shortness of breath. ROS: as above PHYSICAL EXAM: Constitutional: Patient appears in no acute distress. HENT: Head: Normocephalic and atraumatic. Eyes: EOMI, PERRL Mouth/Throat: Mucous membranes moist. Neck: Trachea midline. Neck supple. Cardiovascular: Tachycardic with regular rhythm. No murmurs, rubs or gallops. Intact distal pulses. Pulmonary/Chest: No respiratory distress. Breath sounds clear and equal bilaterally. No wheezes or rales. Abdominal: Abdomen soft, no tenderness, rebound or guarding. Musculoskeletal: - RLE: Open wound to the sole of the right foot by the base of the middle toe. Surrounding erythema and diffuse swelling of the foot. Intact DP and PT pulses. Patient able to dorsiflex and plantarflex the ankle and wiggle the toes. Good cap refill in all 5 toes. Skin: Warm and dry. Psychiatric: Appropriate mood and affect for situation. Neurological: Alert and keenly responsive. CN II-XII grossly intact, moving all extremities equally and fully. MDM: - Vitals signs showed tachycardia. - History obtained via patient. History as above. - Chronic conditions affecting care: BPH; LVH; HTN - Differential diagnoses include, but are not limited to: diabetic foot wound; cellulitis; abscess; sepsis - Order placed for continuous cardiac monitoring. At this time, monitor showed rate of 100 bpm with normal sinus rhythm, per my interpretation. - External medical records reviewed. Echocardiogram dated 12/20/2022 was reviewed. Patient has an EF of 55 to 60%. - EKG interpreted by myself showed normal sinus rhythm. Rate 93 bpm. QT 344. No acute ischemic changes. Noted to have occasional PVCs - Laboratory workup interpreted by myself showed leukocytosis (WBC 16.22) with left shift; slight hyponatremia (Na 133 - pseudohyponatremia in setting of elevated glucose); hypokalemia (K 3.4); hyperglycemia (glucose 242); normal troponin; elevated BNP; elevated procalcitonin (5.09) - Blood cultures obtained. - CXR negative for pneumonia, per my interpretation - Patient given 2.5L NS in ER. Patient's sepsis fluid volume resuscitation based on ideal body weight is 2427.00 mL. - Empirically started on IV vancomycin and IV zosyn. - Discussion was had with assistant case manager about patient's case and need for admission - Hospitalist consulted for admission - Patient admitted to [facility] for further evaluation and management. ASSESSMENT AND PLAN: Diagnosis: sepsis; open wound of right foot; leukocytosis; elevated procalcitonin; acute hypokalemia Plan: admit Past Med/Surg History Problem List (Updated 02/28/24 @ 15:32 by Vilma Son MD) Open wound of right foot (Acute) Sepsis (Acute) BPH loc w urin obs/LUTS Quadriceps tendon rupture Encounter for pre-operative examination LVH (left ventricular hypertrophy) Dilated aortic root Ascending aorta dilatation Follows with Dr. Pressley, monitoring Echo 12/2022: Mildly dilated ascending aorta (3.8cm in diameter) Hypertension Medical History Ascending aorta dilatation Follows with Dr. Pressley, monitoring Echo 12/2022: Mildly dilated ascending aorta (3.8cm in diameter) BPH (benign prostatic hyperplasia) Chronic back pain Hypertension Osteoarthritis Sleep apnea CPAP Surgical History History of cataract surgery R/L History of colonoscopy History of microdiscectomy L4-L5 History of repair of left rotator cuff History of wisdom tooth extraction S/P epidural steroid injection multiple Family History Other No family history of adverse response to anesthesia Social History Smoking Status: Never smoker Tobacco Type: Cigars Second Hand Exposure: No; Do You Dip or Chew Tobacco: No; Hx Alcohol Use: Yes (rarely) Alcohol type: beer Hx Substance Use: No Preferred Language: Arabic Communication Ability: Effective Can Dryer Required: No Beliefs That Will Affect Care: None Current Living Situation: Spouse Feels Safe at Home: Yes Assistive Devices: Cane, Crutches and Walker Allergies Allergies Allergy/AdvReac Type Severity Reaction Status Date / Time No Known Allergies Allergy Verified 02/28/24 14:58 Home Meds Home Medications Medication Instructions Recorded Confirmed ascorbic acid (vitamin C) 500 mg 500 mg PO QAM 09/17/18 02/28/24 tablet (Vitamin C) aspirin 81 mg tablet,delayed 81 mg PO QPM 09/17/18 02/28/24 release multivitamin 1 tab PO QAM 09/17/18 02/28/24 tamsulosin 0.4 mg capsule 0.4 mg PO QAM 09/17/18 02/28/24 naproxen sodium 220 mg tablet 220 mg PO DAILY PRN Pain, Mild 10/02/18 02/28/24 (Aleve) glucosamine sulfate 2KCl 1,000 mg 2,000 mg PO QAM 03/16/20 02/28/24 tablet (Glucosamine Relief) turmeric root extract 500 mg 500 mg PO QAM 09/15/20 02/28/24 capsule hydrochlorothiazide 25 mg tablet 25 mg PO QAM 10/09/23 02/28/24 losartan 100 mg tablet 100 mg PO QPM 10/09/23 02/28/24 metformin 500 mg tablet 500 mg PO BID 02/28/24 02/28/24 Previous Rx's Medication Instructions Recorded finasteride 5 mg tablet 5 mg PO DAILY #90 tabs 12/02/23 Results & Data (ED) Vital Signs Vital Signs - 24 hr 02/28/24 12:36 Temperature 36.4 C L Temperature Source Temporal Artery Scan Pulse Rate 98 H Pulse Rhythm Regular Pulse Strength Normal Respiratory Rate 20 Respiratory Effort / Characteristics Non-Labored Spontaneous Respiratory Depth Normal Blood Pressure 104/56 L Blood Pressure Mean 72 Pulse Oximetry 95 Oxygen Delivery Method Room Air Sepsis Recent Fever Within 48 Hours No Sepsis New/Unexplained Change in Mental Status N/A Sepsis Action Taken by Nursing No Action Required Laboratory Data 02/28/24 13:10 02/28/24 13:10 Lab Results 02/28/24 Range/Units 13:10 WBC 16.22 H (4.8-10.8) K/ul RBC 4.72 (4.70-6.10) M/uL Hgb 14.5 (14.0-18.0) g/dl Hct 40.9 L (42.0-52.0) % MCV 86.7 (80.0-100.0) fL MCH 30.7 (25.0-34.0) pg MCHC 35.5 (32.0-36.0) g/dL RDW Std Deviation 39.6 (36.4-46.3) fL RDW Coeff of Abdi 12.5 (11.5-14.5) % Plt Count 159 (130-400) K/uL MPV 11.3 (9.4-12.4) fL Immature Gran % (Auto) 0.4 % Neut % (Auto) 85.4 % Lymph % (Auto) 7.4 % [place] % (Auto) 6.5 % Eos % (Auto) 0.1 % Baso % (Auto) 0.2 % Neut # (Auto) 13.87 H (1.40-6.50) K/uL Lymph # (Auto) 1.20 (1.20-3.40) K/uL [place] # (Auto) 1.05 H (0.11-0.59) K/uL Eos # (Auto) 0.01 (0.00-0.50) K/uL Baso # (Auto) 0.03 (0.00-0.20) K/uL Immature Gran # (Auto) 0.06 (0.01-0.20) K/uL PT 11.6 (9.0-12.0) Seconds INR 1.1 (0.9-1.1) APTT 31 (21-31) Seconds PTT Ratio 1.2 Sodium 133 L (136-145) mmol/L Potassium 3.4 L (3.5-5.1) mmol/L Chloride 99 (98-107) mmol/L Carbon Dioxide 27 (21-32) mmol/L Anion Gap 7 (3-11) BUN 40 H (6-23) mg/dl Creatinine 1.35 (0.6-1.4) mg/dl Est Cr Clr Drug Dosing Not Reportable Est GFR ( Amer) 57.9 ml/min Est GFR (Non-Af Amer) 49.9 ml/min BUN/Creatinine Ratio 29.6 H (10-20) Glucose 242 H (70-99(Fasting)) mg/dl Calcium 9.6 (8.6-10.3) mg/dl Magnesium 1.9 (1.7-2.4) mg/dl Total Bilirubin 0.9 (0.2-1.0) mg/dl AST 21 (13-39) U/L ALT 20 (7-52) U/L Alkaline Phosphatase 75 (34-104) U/L Troponin I High Sens 12.7 (0-20) pg/ml B-Natriuretic Peptide 109 H (0-100) pg/ml Total Protein 7.4 (6.0-8.3) gm/dl Albumin 3.8 (3.4-5.0) gm/dl Globulin 3.6 (2.5-4.0) gm/dl Albumin/Globulin Ratio 1.1 (0.9-2) Procalcitonin 5.09 H (0-0.5) ng/ml Imaging Data Radiologist's Impression: Chest X-Ray 02/28/24 12:39 SINGLE VIEW CHEST CLINICAL HISTORY: Sepsis. FINDINGS: 2 PA chest radiographs are obtained. No prior studies are available for comparison at the time of dictation. The cardiomediastinal silhouette is top normal for projection. There is mild left basilar atelectasis. The lungs and pleural spaces are otherwise clear. No pneumothorax is seen. The skeletal structures are osteopenic. The bony thorax is grossly intact. Mild degenerative change is noted in the shoulders and spine. IMPRESSION: No active disease in the chest. ACT 112: Negative or not required by law. Electronically signed by: Navid Franco M.D. 02/28/2024 2:15 PM Discharge Plan Visit Data Chief Complaint: Foot Injury/Pain Stated Complaint: CYST ON BTM OF R FOOT - CANNOT STAND ON IT ED Provider: Vilma Son Discharge Problem: Sepsis, Open wound of right foot, Leukocytosis, Elevated procalcitonin, Acute hypokalemia Forms Stand Alone Forms: [facility] [address] Prescriptions Prescriptions: No Action finasteride 5 mg tablet 5 mg PO DAILY Qty: 90 3RF multivitamin Tablet 1 tab PO QAM aspirin 81 mg Tablet,Delayed Release (Dr/Ec) 81 mg PO QPM ascorbic acid (vitamin C) [Vitamin C] 500 mg Tablet 500 mg PO QAM tamsulosin 0.4 mg Capsule 0.4 mg PO QAM naproxen sodium [Aleve] 220 mg Tablet 220 mg PO DAILY PRN (Reason: Pain, Mild) Hold Instructions: Resume on 10/26/23. hold until completed with [place] glucosamine sulfate 2KCl [Glucosamine Relief] 1,000 mg Tablet 2,000 mg PO QAM turmeric root extract 500 mg Capsule 500 mg PO QAM metformin 500 mg tablet 500 mg PO BID Rx Instructions: PER PT'S SPOUSE "HAVEN'T GIVEN TO PT, NOT EATING VERY MUCH". hydrochlorothiazide 25 mg Tablet 25 mg PO QAM losartan 100 mg Tablet 100 mg PO QPM Referrals Referrals: Chau Yusuf [Primary Care Provider] -
--- NOTE | 2024-02-28 15:43 | History & Physical Report ---
Date of Service February 28, 2024 Assessment & Plan (1) Open wound of right foot: Plan: Patient sent in by theatre instructor on 02/27 for a cyst on the bottom of his right foot Foot is erythematous, swollen, and hot to touch Daptomycin 6mg/kg IV q24h Zosyn 4.5 g IV q8h Acetaminophen as needed for fever/pain A.m. CBC, BMP, CRP (2) Sepsis: Plan: Skin/soft tissue source; leukocytosis at 16.22 on arrival; febrile at home; hypotensive in the ED Procalcitonin elevated at 5.09 on arrival Lactate WNL at 1.8 IVF bolus with NSS 1500mL + LR 1000mL to meet ideal body weight 30cc/kg Last echo done on 11/21/2023 revealed LVEF at 55 to 60% Continuous telemetry monitoring Follow blood cultures (3) LAURA (acute kidney injury): Plan: Mild; BUN 40, creatinine 1.35, and EGFR 49.9 on arrival Avoid nephrotoxic agents for possible Will hold losartan and HCTZ for now (4) Diabetes: Plan: Recently diagnosed With metformin SSI; with target BSG range 110-140mg/dL, CF 40, carb ratio 15 T2DM diet BSG ACHS Adjust regimen as needed AM A1c (5) Sleep apnea: Plan: CPAP at bedtime (6) Hypertension: Plan Disposition: Admit to PCU telemetry Full code T2DM diet VTE PPx: Heparin 5000 units SQ q12h History of Present Illness Chief Complaint: Right foot injury/pain Primary Care Provider: Chau Shelley is a pleasant 78yo male with PMH of newly diagnosed diabetes, HTN, BPH, and ascending aortic dilation. He presented at the behest of his theatre instructor on 02/27 for a cyst on the bottom of his right foot. Patient reports that the foot injury occurred 1.5 months ago, and initially he neglected it. He reports he developed a callus on the bottom of his right foot secondary to a pair of boots with rough soles. He initially did not do anything for the time, but then saw theatre instructor about a month ago who recommended insoles. Over the past few days he has developed severe pain in his right foot. The pain stays in the right foot without radiation above the ankle. He has been taking Tylenol Extra Strength twice daily for the pain. He rates the pain as 8/10 at present, but 10/10 at worst. He is unable to characterize it, but does note it is constant, and that pressure makes it worse. Foot is erythematous, swollen, and warm to touch. He is unable to bear weight on his right foot. He also endorses fever in the past couple nights around 101 F, as well as night sweats. He was started on doxycycline 100 mg twice daily 3 days ago, and has taken approximately 5 doses. Patient reports he is a newly diagnosed diabetic, and only recent started taking metformin within the past couple weeks. He only took his hydrochlorothiazide this morning, no other medications. Only recent changes in medications with the doxycycline and the metformin. No recent change in diet, but patient reports he has not been eating much the past few days; has been drinking plenty of fluids. No prior history of injuries to the foot. He denies smoking, alcohol use, tobacco use. Patient is hypertensive at 104/56, and mildly tachycardic around 100 bpm at time of admission; vitals otherwise stable. ED course: Vancomycin 2750 mg IV Zosyn 4.5 g IV NSS 1500mL IV ROS: Patient endorses severe right foot pain/erythema/swelling, fever (101 F taken at home), night sweats, lightheadedness, nausea, dry heaves, and mild numbness and tingling in the right foot. Patient denies chills, headache, changes in vision, chest pain, chest pressure, chest palpitations, SOB, cough, pleuritic CP, vomiting, diarrhea, blood in urine or stool, or changes in urinary or bowel habits. Allergies Allergy/AdvReac Type Severity Reaction Status Date / Time No Known Allergies Allergy Verified 02/28/24 14:58 Home Medications Medication Instructions Recorded Confirmed Type ascorbic acid (vitamin C) 500 mg 500 mg PO QAM 09/17/18 02/28/24 History tablet (Vitamin C) aspirin 81 mg tablet,delayed 81 mg PO QPM 09/17/18 02/28/24 History release multivitamin 1 tab PO QAM 09/17/18 02/28/24 History tamsulosin 0.4 mg capsule 0.4 mg PO QAM 09/17/18 02/28/24 History naproxen sodium 220 mg tablet 220 mg PO DAILY PRN Pain, Mild 10/02/18 02/28/24 History (Aleve) glucosamine sulfate 2KCl 1,000 mg 2,000 mg PO QAM 03/16/20 02/28/24 History tablet (Glucosamine Relief) turmeric root extract 500 mg 500 mg PO QAM 09/15/20 02/28/24 History capsule hydrochlorothiazide 25 mg tablet 25 mg PO QAM 10/09/23 02/28/24 History losartan 100 mg tablet 100 mg PO QPM 10/09/23 02/28/24 History finasteride 5 mg tablet 5 mg PO DAILY #90 tabs 12/02/23 02/28/24 Rx metformin 500 mg tablet 500 mg PO BID 02/28/24 02/28/24 History Past Med/Surg History Problem List (Updated 02/28/24 @ 16:38 by Rohit Anderson PA-C) Diabetes LAURA (acute kidney injury) Sleep apnea CPAP Open wound of right foot (Acute) Sepsis (Acute) BPH loc w urin obs/LUTS Quadriceps tendon rupture Encounter for pre-operative examination LVH (left ventricular hypertrophy) Dilated aortic root Ascending aorta dilatation Follows with Dr. Pressley, monitoring Echo 12/2022: Mildly dilated ascending aorta (3.8cm in diameter) Hypertension Medical History Ascending aorta dilatation Follows with Dr. Pressley, monitoring Echo 12/2022: Mildly dilated ascending aorta (3.8cm in diameter) BPH (benign prostatic hyperplasia) Chronic back pain Hypertension Osteoarthritis Sleep apnea CPAP Surgical History History of cataract surgery R/L History of colonoscopy History of microdiscectomy L4-L5 History of repair of left rotator cuff History of wisdom tooth extraction S/P epidural steroid injection multiple Family History Other No family history of adverse response to anesthesia Social History Smoking Status: Never smoker Tobacco Type: Cigars Second Hand Exposure: No; Do You Dip or Chew Tobacco: No; Hx Alcohol Use: Yes (rarely) Alcohol type: beer Hx Substance Use: No Preferred Language: Grenadian Communication Ability: Effective Restaurant Floor Manager Required: No Beliefs That Will Affect Care: None Current Living Situation: Spouse Feels Safe at Home: Yes Assistive Devices: Cane, Crutches and Walker Review of Systems 2 Review of Systems: See HPI above Physical Exam 2 Physical Exam: General: Mild distress secondary to foot pain; pleasant affect; non-toxic appearing; well-nourished; cooperative; SpO2 95% on RA HEENT: normocephalic, atraumatic; no scleral icterus; PERRLA; moist mucus membrane; vision and hearing grossly intact Neck: supple; no lymphadenopathy; trachea midline Skin: warm, dry without signs of tenting; no cyanosis; no rashes, bruising, lesions, or erythema noted CV: chest wall NTP; RRR; S1/S2 normal; no murmurs/rubs/gallops; pulses intact and symmetric at radial, DP, and PT Lungs: no acute respiratory distress; symmetrical chest wall expansion; clear breath sounds across all lung castell[place] w/o adventitious sounds; no wheezing ABD: Soft, NTP; BS present; no rebound/guarding; no distention MSK: no tics or fasciculations; +2 pitting edema in the lower extremities bilaterally extending to the mid calf Right foot: Erythematous, swollen, and warm to touch (see photos below); notable callus on the bottom of the right foot below the third metatarsal Neuro: A&Ox3; normal mood and affect; fluent speech; no focal deficits; sensation intact and symmetric in the LEs b/l assessed via light touch Results & Data Results & Data Vital Signs (Past 12 Hours) Vital Signs Temp Pulse Resp BP Pulse Ox O2 Del Method 02/28/24 12:36 36.4 C L 98 H 20 104/56 L 95 Room Air Laboratory Results Abnormal lab results 02/28/24 Range/Units 13:10 WBC 16.22 H (4.8-10.8) K/ul Hct 40.9 L (42.0-52.0) % Neut # (Auto) 13.87 H (1.40-6.50) K/uL [place] # (Auto) 1.05 H (0.11-0.59) K/uL Sodium 133 L (136-145) mmol/L Potassium 3.4 L (3.5-5.1) mmol/L BUN 40 H (6-23) mg/dl BUN/Creatinine Ratio 29.6 H (10-20) Glucose 242 H (70-99(Fasting)) mg/dl B-Natriuretic Peptide 109 H (0-100) pg/ml Procalcitonin 5.09 H (0-0.5) ng/ml Diagnostic Findings Chest X-Ray 02/28/24 12:39 SINGLE VIEW CHEST CLINICAL HISTORY: Sepsis. FINDINGS: 2 PA chest radiographs are obtained. No prior studies are available for comparison at the time of dictation. The cardiomediastinal silhouette is top normal for projection. There is mild left basilar atelectasis. The lungs and pleural spaces are otherwise clear. No pneumothorax is seen. The skeletal structures are osteopenic. The bony thorax is grossly intact. Mild degenerative change is noted in the shoulders and spine. IMPRESSION: No active disease in the chest. ACT 112: Negative or not required by law. Electronically signed by: Navid Franco M.D. 02/28/2024 2:15 PM ECG Additional Comments: ECG revealed sinus rhythm with frequent PACs at 93 bpm; QTc 427 Code Status & VTE Plan Code Status Full code VTE Prophylaxis Plan VTE Prophylaxis will be ordered: Yes Supervising Physician Co-Signing Physician Notes Patient seen and examined, chart reviewed, case discussed with Rohit Anderson PA-C and I agree with the assessment and plan as above except as otherwise noted Labs and images reviewed History of recently diagnosed DM, hypertension, BPH, ascending aortic dilation. Presents with right foot cellulitis which continued to worsen on outpatient doxycycline. Hypotensive and tachycardic initially in the ER. Improving post fluids and fluids brought to complete 30 cc/kg recommendations of sepsis bolus. Lactate is not elevated. PCT is elevated. BC pending. Admitted on Zosyn/daptomycin for diabetic foot infection failing outpatient therapy. At time of reassessment nontoxic, nondistressed. Affirms that he had a callus which was scraped x2, but got infected and then rapidly worsened 2 days ago while on abx. CTAB/RRR on assessment. BP improved to 137-69 at bedside post fluids. Agree with his assessment and management above PG Care Time/CCT Total # of Minutes Spent Total Time Spent with Patient: Total time spent is greater than 50% in coordination of care (as documented) at patient's floor/unit and/or counseling patient: [place] [address] INT INP/OBS CARE 3/75MIN Patient Type New Medical Decision Making High Complexity Diagnoses Open wound of right foot S91.301A Sepsis A41.9 LAURA (acute kidney injury) N17.9 Diabetes E11.9 Sleep apnea G47.30 Hypertension I10
[2024-02-28] MEDS: SODIUM CHLORIDE 0.9% 1,000 ML IV ONE ×2 (16:00→17:36)
[2024-02-28] MEDS: PIPERACILLIN/TAZOBACTAM 4.5 GM/100 ML BAG IV ONE (16:10)
--- NOTE | 2024-02-28 16:41 | Electrocardiogram Report ---
Test Reason : Blood Pressure : / mmHG Vent. Rate : 093 BPM Atrial Rate : 093 BPM P-R Int : 168 ms QRS Dur : 096 ms QT Int : 344 ms P-R-T Axes : 067 -17 049 degrees QTc Int : 427 ms Sinus rhythm with frequent Premature ventricular complexes Cannot rule out Inferior infarct , age undetermined Abnormal ECG No previous ECGs available Confirmed by Derrick Pressley ([id number]) on 02/28/2024 4:40:59 PM Referred By: Chau Yusuf Confirmed By:Derrick Pressley
[2024-02-28 17:39] LABS: C Reactive Protein 33.16 mg/dl (0-0.5)
[2024-02-28] MEDS: LACTATED RINGER'S 1,000 ML IV ONE (17:39)
[2024-02-28] MEDS: SODIUM CHLORIDE 0.9% 500 ML IV ONE (17:40)
[2024-02-28] MEDS ORDERED: ACETAMINOPHEN 325 MG TAB PO PRN (19:11)
[2024-02-28] MEDS ORDERED: GLUCOSE 40% GEL 15 GM TUBE PO PRN (19:11)
[2024-02-28] MEDS ORDERED: GLUCOSE 10 TAB/TUBE PO PRN (19:11)
[2024-02-28] MEDS ORDERED: DEXTROSE 50% 50 ML SYRINGE IV PRN (19:11)
[2024-02-28] MEDS ORDERED: CARBOHYDRATES FOR HYPOGLYCEMIA PO PRN (19:11)
[2024-02-28] MEDS ORDERED: GLUCAGON FOR INJ 1 MG VIAL SQ PRN (19:11)
[2024-02-28] MEDS ORDERED: ONDANSETRON INJ 2 MG/ML 2 ML VIAL IV PRN (19:11)
[2024-02-28] MEDS: ASPIRIN 81 MG ECTAB PO SCH (20:31)
[2024-02-28] MEDS: DAPTOmycin 525 MG in SYRINGE 0 ML IV STA (20:31)
[2024-02-28] MEDS: HEPARIN SOD 5,000 UNIT/0.5 ML VIAL SQ SCH (20:32)
[2024-02-28] MEDS: PIPERACILLIN/TAZOBACTAM 4.5 GM in DEXTROSE 5% MINI-B 100 ML IV SCH (20:32)
[2024-02-28 20:36] LABS: Appearance Urine Clear (Clear); Bacteria Urine Automated None Seen (None Seen); Bilirubin Urine Negative (Negative); Blood Urine Negative (Negative); Color Urine Yellow; Glucose Urine UA 1+ (Negative); Hyaline Casts Urine Present /lpf (None Presnt); Ketones Urine Negative (Negative); Leukocyte Esterase Urine Negative (Negative); Nitrite Urine Negative (Negative); Protein Urine 2+ (Negative); RBC Urine Automated 0-2 /hpf (0-2); Specific Gravity Urine 1.022 (1.000-1.030); Urobilinogen Urine Negative (Negative); WBC Urine Automated 0-5 /hpf (0-5); White Blood Cell Casts Urine Present /lpf (None Prsent); pH Urine 5.5 (4.5-7.5)
[2024-02-28] MEDS: INSULIN ASPART PER UNIT CHARGE SC SCH (20:38)
--- OUTSIDE RECORDS SUMMARY | 2024-02-28 21:05 | External Medical Summary | Continuity of Care Document ---
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 Name Role Phone Chau Yusuf Primary Care Physician [phone] Encounter [facility] [id number] Date(s): 01/20/24 - 01/20/24 [facility] [address] [id number] [facility] Medicine [address] [place] [id number] Encounter Diagnosis Quadriceps tendon rupture(Discharge Diagnosis) - 01/20/24 Discharge Disposition: Home or Self Care Attending Physician: MD Josiah, Trevon Lanza Allergies, Adverse Reactions, Alerts No Known Medication Allergies Medications acetaminophen-hydrocodone 325 mg-5 mg oral tablet Start: 11/01/23 10:30:00 AM EST, Refills: 0 Start Date: 11/01/23 Status: Ordered amLODIPine 2.5 mg oral tablet Start: 08/08/21 3:54:00 PM EST Start Date: 08/08/21 Status: Ordered aspirin 325 mg oral capsule Start: 11/25/23 2:50:00 PM EDT Start Date: 11/25/23 Status: Ordered aspirin 81 mg oral delayed release tablet Start: 10/21/17 12:54:00 PM EST Start Date: 10/21/17 Status: Ordered Medrol Dosepak 4 mg oral tablet Start: 03/14/20 1:33:00 PM EDT, See Instructions, Disp# 21 tab, Take as directed on package labeling for 6 days., Pharmacy: [facility]/pharmacy #[id number] Start Date: 03/14/20 Stop Date: 03/20/20 Status: Ordered Multi Vitamin+ Start: 10/21/17 12:53:00 PM EST Start Date: 10/21/17 Status: Ordered Naprosyn 500 mg oral tablet Start: 10/21/17 1:29:00 PM EST, 1 tab, PO, bid, Disp# 50 tab, Refills: 1, PRN: as needed for pain, Pharmacy: [facility]/pharmacy #[id number] Start Date: 10/21/17 Status: Ordered [place]-3 oral capsule Start: 10/21/17 12:53:00 PM EST Start Date: 10/21/17 Status: Ordered tamsulosin 0.4 mg oral capsule Start: 10/21/17 12:53:00 PM EST Start Date: 10/21/17 Status: Ordered turmeric Start: 09/15/20 8:34:00 AM EST Start Date: 09/15/20 Status: Ordered Vitamin A, D oral capsule Start: 10/21/17 12:54:00 PM EST Start Date: 10/21/17 Status: Ordered Vitamin C Start: 10/21/17 12:53:00 PM EST Start Date: 10/21/17 Status: Ordered Mental Status 01/20/24 Barriers to Learning one year None evide nt Mandatory Health Literacy Documentation Yes Health Literacy Communication Barriers N ever Primary Language Frisian Problem List Condition Confirmation Course Effective Dates Status H ealth Status Informant Right hip pain Confirmed Active Inflammation of right sacroiliac joint. Confirmed Active Lumbago Confirmed Active Lumbar radiculopathy Confirmed Active Left leg pain Confirmed Active Quadriceps tendon rupture Confirmed Active Diagnosis Diagnosis Type Effective Dates Health Status Clinical Service Informant Quadriceps tendon rupture Discharge Diagnosis 01/20/24 Procedures Procedure Date Related Diagnosis Body Site Status Repair of quadriceps tendon 1 10/11/23 Completed 1Left Social History Social History Type Response Smoking Status Never smoked cigaret lily Sex Male Ortho Outpt Note * Juan Alvarado: PERFORM, MODIFY, MODIFY, MODIFY, MODIFY Event Display: Ortho Outpt Note Authored Date: [id number] Name:BRAYDON GROVER Patient Number:[id number] :1945 Date of Service:01/20/2024 CHIEF COMPLAINT:3 monthsF/u s/p left quadriceps tendon repair, (DOS: 10/11/2023) HPI: [id number] is s/p left quadriceps tendon repair and presents today with his .He states that he is able to go up and down steps, though he is holding therailing to prevent a fall. He has been taking a low dose of Aspirin at night, which he has been taking prior to the surgery. He has been attending physical therapy, was told by therapist to consult me for continued sessions. He states that sometimes when he is walking downhill, he experiences a painless feeling of stiffness in the left knee which may be due to scar tissue. PHYSICAL EXAM: Focusing on the patient'sLEFTlower extremity: Normal gait NOEffusion Good quad tone with minimal atrophy 5/5 Knee extension strength Intact active straight leg raise withoutlag Knee ROM: 0 - 120 (left) 0 - 135 (right) Good patellar mobility. IMPRESSION: 78-year-old male3 monthss/p left quadriceps tendon repair, (DOS: 10/11/2023) PLAN: Patient may continue to see physical therapy monthly. Continue ROM exercises, limit activitiessuch asheavy lifting, kicking, pulling, pushing. 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 Patient may drive his four-villan[place]. Exercise caution when descending stairs. Patient should continue to take aspirin, once daily. Follow up in 3 months. Overall doing very well. ATTESTATION: I, Juan Alvarado, have scribed for, and in the presence of, Trevon Rahman, on this date,01/20/2024 11:28:09. Electronic Signature on File Electronically Reviewed/Signed by: Juan Alvarado Author Signature Dt/Tm:01/20/2024 12:07 PM Electronically Reviewed/Signed by: Trevon Rahman MD Cosigner Signature Dt/Tm: 01/20/2024 03:34 PM Division of Sports Medicine [facility] Patient Care team information Care Team Personnel Name: MD Yusuf Brandon M Position: Referring Member Role: Primary Care Provider Address: Address: [facility] [address], [address] [place] [address] [place] Care Team Related Persons Name: LENORE MORELIA Cathy Address: home [address] [place], [place] [id number]
[2024-02-29 06:20] LABS: A calco-baum cmplx NotReported Not Detected (NotDetected); Bact fragilis Not Reported Not Detected (NotDetected); Blood Culture Id Panel See PCR Comment (NotDetected); C auris Not Reported Not Detected (NotDetected); Calbicans Not Reported Not Detected (NotDetected); Candida glabrata Not Reported Not Detected (NotDetected); Candida krusei Not Reported Not Detected (NotDetected); Cneoformans/gatti Not Reported Not Detected (NotDetected); Cparapsilosis Not Reported Not Detected (NotDetected); E cloacae compx Not Reported Not Detected (NotDetected); Efaecalis Not Reported Not Detected (NotDetected); Efaecium Not Reported Not Detected (NotDetected); Enterobacterales Not Reported Not Detected (NotDetected); Escherichia coli Not Reported Not Detected (NotDetected); H influenzae Not Reported Not Detected (NotDetected); K aerogenes Not Reported Not Detected (NotDetected); Koxytoca Not Reported Not Detected (NotDetected); Kpneumoniae grp Not Reported Not Detected (NotDetected); Lmonocyt Not Reported Not Detected (NotDetected); N meningitidis Not Reported Not Detected (NotDetected); P aeruginosa Not Reported Not Detected (NotDetected); Proteus spp Not Reported Not Detected (NotDetected); Salmonella spp Not Reported Not Detected (NotDetected); Smarcescens Not Reported Not Detected (NotDetected); Staph lugdunensis Not Reported Not Detected (NotDetected); Staph spp. Not Reported Not Detected (NotDetected); Staphaureus Not Reported Not Detected (NotDetected); Staphepi Not Reported Not Detected (NotDetected); Stenmaltophilia Not Reported Not Detected (NotDetected); Strep agal(GrpB) Not Reported DETECTED (NotDetected); Strep pneum Not Reported Not Detected (NotDetected); Strep pyog (GrpA) Not Reported Not Detected (NotDetected); Strep spp Not Reported DETECTED (NotDetected); Streptococcus spp DETECTED (NotDetected)
[2024-02-29 06:39] LABS: Streptococcus agalactiae(GrpB) DETECTED (NotDetected)
[2024-02-29 06:52] LABS: Basophils # (auto) 0.04 K/uL (0.00-0.20); Basophils % (auto) 0.4 %; Eosinophils # (auto) 0.02 K/uL (0.00-0.50); Eosinophils % (auto) 0.2 %; Hematocrit (blood only) 37.2 % (42.0-52.0); Hemoglobin 12.8 g/dl (14.0-18.0); Immature Granulocytes # (auto) 0.04 K/uL (0.01-0.20); Immature Granulocytes % (auto) 0.4 %; Lymphocytes # (auto) 2.04 K/uL (1.20-3.40); Lymphocytes % (auto) 17.9 %; Mean Corpuscular Hemoglobin 30.3 pg (25.0-34.0); Mean Corpuscular Hgb Conc 34.4 g/dL (32.0-36.0); Mean Corpuscular Volume 88.2 fL (80.0-100.0); Mean Platelet Volume 11.5 fL (9.4-12.4); Monocytes # (auto) 1.12 K/uL (0.11-0.59); Monocytes % (auto) 9.8 %; Neutrophils # (auto) 8.15 K/uL (1.40-6.50); Neutrophils % (auto) 71.3 %; Platelet Count 171 K/uL (130-400); RDW Coefficient of Variation 12.6 % (11.5-14.5); RDW Standard Deviation 40.2 fL (36.4-46.3); Red Blood Count 4.22 M/uL (4.70-6.10); White Blood Count 11.41 K/ul (4.8-10.8)
[2024-02-29 07:01] LABS: BUN Creatinine Ratio 25.7 (10-20); C Reactive Protein 25.05 mg/dl (0-0.5); Calcium 8.6 mg/dl (8.6-10.3); Creatinine Clr Calc Pharmacy 69.5 ml/min; Est GFR (Non-African American) 64.7 ml/min; Potassium 3.2 mmol/L (3.5-5.1)
[2024-02-29 07:45] LABS: Estimated Average Glucose 171 mg/dl; Hemoglobin A1C 7.6 % (4.5-5.6)
[2024-02-29] MEDS: POTASSIUM CHLORIDE CRTAB 20 MEQ TABCR PO STA (08:30)
[2024-02-29] MEDS: FINASTERIDE 5 MG TAB PO SCH (08:31)
[2024-02-29] MEDS: TAMSULOSIN HCL 0.4 MG CAP PO SCH (08:31)
--- NOTE | 2024-02-29 13:30 | Hospitalist Progress Note ---
Date of Service February 29, 2024 Assessment & Plan (1) Septicemia: Plan: Right foot wound and cellulitis. He has what looks like a plantar wart/callus that was recently debrided on 2 occasions in the podiatry office that is now draining some fluid on admission with surrounding foot cellulitis and significant edema. With leukocytosis at 16.22 on arrival, febrile at home, tachycardia, soft BPs on arrival, procalcitonin elevated at 5.09, Lactate WNL at 1.8, CRP elevated at 25, ESR elevated at 53 Blood cultures now growing Streptococcus agalactiae in the anaerobic bottles 2/4 Wound culture with pinpoint growth-reincubating He has no artificial joints or implants. Fevers have resolved, leukocytosis much improved, erythema has slightly improved but still with significant edema and pain Check MRI of the foot with and without contrast to assess for osteomyelitis Consult orthopedic surgery in case of need for surgical drainage Will consult infectious disease on Saturday Continue broad-spectrum coverage for now with daptomycin which would cover for the Streptococcus as well as Zosyn to cover for Pseudomonas (he has diabetes) as well as coverage for anaerobic bacteria Follow wound culture Repeat blood cultures today and daily until negative x 2 sets Check echocardiogram to look for valvular vegetation Follow CBC, BMP, CRP, and procalcitonin in the morning (2) Cellulitis of foot: Plan: As above (3) LAURA (acute kidney injury): Plan: Mild; BUN 40, creatinine 1.35, and EGFR 49.9 on arrival, now improved with creatinine down to 1.09, BUN down to 28 after receiving IV fluid resuscitation Continue to hold losartan and HCTZ Follow BMP Hypokalemia-potassium mildly low today at 3.2-give potassium chloride 40 mill equivalents p.o. x 1 and follow labs in the morning (4) Diabetes: Plan: Recently diagnosed and is on metformin as an outpatient. Hemoglobin A1c here is 7.6% Continue NovoLog supplemental insulin and will add Lantus 5 units at bedtime for improved control in the setting of infection Continue diabetic diet and Accu-Cheks (5) Sleep apnea: Plan: Continue CPAP at bedtime (6) Hypertension: Plan: Blood pressures are mildly elevated Holding HCTZ and home losartan due to mild acute kidney injury Continue home baby aspirin Plan BPH-continue home tamsulosin, finasteride Disposition: Continued stay on PCU Full code VTE PPx: Heparin 5000 units SQ q12h Admission and Anticipated Discharge Date Admission Date: February 28, 2024 Subjective Patient continues to have pain and swelling in the right foot but thinks the redness is a little bit improved. I discussed his case with orthopedic surgery. He is not having any chills or fevers today. He has no other complaints Telemetry with normal sinus rhythm and PACs, PVCs, rates in the 70s to 90s I discussed his care with his at the bedside. Physical Exam Constitutional: WD/WN, vitals as above Respiratory: normal respiratory effort, lungs clear to auscultation Cardiovascular: Rate/Rhythm: regular rate and regular rhythm Heart Sounds: no murmur Extremities: + edema (Right foot and ankle) Gastrointestinal (Abdomen): normal bowel sounds, soft, nontender, no hepatosplenomegaly Musculoskeletal: Ankle: + ankle abnormal to inspection (Significant 2-3+ pitting edema of the right foot and ankle) and + skin erythema (Right dorsal foot, slightly receded from line of demarcation) Skin: + lesion (Third MTP head plantar surface with plantar wart/callus, no drainage) Psychiatric: A+Ox3, euthymic affect Results & Data Results & Data Vital Signs (Past 12 Hours) Vital Signs Temp Pulse Pulse Resp BP BP Pulse Ox 02/29/24 11:00 36.9 C 76 20 142/79 H 95 02/29/24 08:00 87 02/29/24 07:28 36.5 C 81 21 152/82 H 93 02/29/24 04:00 37.0 C 80 17 126/64 96 O2 Del Method 02/29/24 11:00 Room Air 02/29/24 08:00 02/29/24 07:28 Room Air 02/29/24 04:00 Room Air Laboratory Results CBC, BMP, CRP, procalcitonin, lactate, blood cultures, wound culture all reviewed PG Care Time/CCT Total # of Minutes Spent Total Time Spent with Patient: Total time spent is greater than 50% in coordination of care (as documented) at patient's floor/unit and/or counseling patient: Coding Level of Care Code 41737 SUB INP/OBS CARE 3/50MIN Diagnoses Septicemia A41.9 Cellulitis of foot L03.119 LAURA (acute kidney injury) N17.9 Diabetes E11.9 Sleep apnea G47.30 Hypertension I10
[2024-02-29] MEDS: GADOBUTROL 30ML VIAL IV ONE (14:49)
[2024-02-29] MEDS: DAPTOmycin 525 MG in SYRINGE 0 ML IV SCH (17:27)
--- NOTE | 2024-02-29 19:00 | Orthopedic Consultation ---
Date of Consultation February 29, 2024 Assessment & Plan (1) Cellulitis of foot: IMPRESSION: Right foot diabetic infection/cellulitis, no abscess or area of fluid collection PLAN: Continue conservative management Continue with IV Antibiotics. WBAT through heel. Continue pain control Continue care per primary service. Will continue to follow Present on Admission?: Yes History of Present Illness Reason for Consultation: Right foot diabetic foot infection/cellulitis Requesting Physician: Oriana Khan MD Attending Physician: Marii Roman MD History of Present Illness 78 yo male History of recently diagnosed DM, hypertension, BPH, ascending aortic dilation. Presents with right foot cellulitis which continued to worsen on outpatient doxycycline. He had a callus on the ball of his right foot which was scraped x2, by his histologic technician, but got infected and then rapidly worsened 2 days ago while on abx and was sent to the hospital by his histologic technician. Since admission he is improving with fluids and placed on Zosyn/daptomycin for diabetic foot infection failing outpatient therapy. I was consulted for further evaluation and treatment. Allergies Allergy/AdvReac Type Severity Reaction Status Date / Time No Known Allergies Allergy Verified 02/28/24 14:58 Home Medications Medication Instructions Recorded Confirmed Type ascorbic acid (vitamin C) 500 mg 500 mg PO QAM 09/17/18 02/28/24 History tablet (Vitamin C) aspirin 81 mg tablet,delayed 81 mg PO QPM 09/17/18 02/28/24 History release multivitamin 1 tab PO QAM 09/17/18 02/28/24 History tamsulosin 0.4 mg capsule 0.4 mg PO QAM 09/17/18 02/28/24 History naproxen sodium 220 mg tablet 220 mg PO DAILY PRN Pain, Mild 10/02/18 02/28/24 History (Aleve) glucosamine sulfate 2KCl 1,000 mg 2,000 mg PO QAM 03/16/20 02/28/24 History tablet (Glucosamine Relief) turmeric root extract 500 mg 500 mg PO QAM 09/15/20 02/28/24 History capsule hydrochlorothiazide 25 mg tablet 25 mg PO QAM 10/09/23 02/28/24 History losartan 100 mg tablet 100 mg PO QPM 10/09/23 02/28/24 History finasteride 5 mg tablet 5 mg PO DAILY #90 tabs 12/02/23 02/28/24 Rx metformin 500 mg tablet 500 mg PO BID 02/28/24 02/28/24 History Patient History Medical History Ascending aorta dilatation Follows with Dr. Pressley, monitoring Echo 12/2022: Mildly dilated ascending aorta (3.8cm in diameter) BPH (benign prostatic hyperplasia) Chronic back pain Hypertension Osteoarthritis Sleep apnea CPAP Surgical History History of cataract surgery R/L History of colonoscopy History of microdiscectomy L4-L5 History of repair of left rotator cuff History of wisdom tooth extraction S/P epidural steroid injection multiple Family History Other No family history of adverse response to anesthesia Social History Smoking Status: Former smoker Tobacco Type: Cigarettes Second Hand Exposure: No; Do You Dip or Chew Tobacco: No; Tobacco Cessation Education Requested by Patient: No Hx Alcohol Use: Yes Alcohol type: beer Hx Substance Use: No Preferred Language: Togolese Communication Ability: Effective 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 BCR < 2 sec. Wiggling toes and ankle. + Swelling and erythema about the foot and ankle appears less than pictures taken by wound care and inked demarcation line. There is a callous area with a pin hole opening over the plantar aspect of the ball of his foot. Min serous drainage noted. Results & Data Vital Signs (Past 12 Hours) Vital Signs Temp Pulse Pulse Resp BP BP Pulse Ox 02/29/24 16:00 81 02/29/24 15:49 36.8 C 78 20 141/83 H 96 02/29/24 11:00 36.9 C 76 20 142/79 H 95 02/29/24 08:00 87 02/29/24 07:28 36.5 C 81 21 152/82 H 93 O2 Del Method 02/29/24 16:00 02/29/24 15:49 Room Air 02/29/24 11:00 Room Air 02/29/24 08:00 02/29/24 07:28 Room Air Laboratory Results Laboratory Results WBC 11.41 K/ul (4.8-10.8) H 02/29/24 05:59 RBC 4.22 M/uL (4.70-6.10) L 02/29/24 05:59 Hgb 12.8 g/dl (14.0-18.0) L 02/29/24 05:59 Hct 37.2 % (42.0-52.0) L 02/29/24 05:59 MCV 88.2 fL (80.0-100.0) 02/29/24 05:59 MCH 30.3 pg (25.0-34.0) 02/29/24 05:59 MCHC 34.4 g/dL (32.0-36.0) 02/29/24 05:59 RDW Std Deviation 40.2 fL (36.4-46.3) 02/29/24 05:59 RDW Coeff of Abdi 12.6 % (11.5-14.5) 02/29/24 05:59 Plt Count 171 K/uL (130-400) 02/29/24 05:59 MPV 11.5 fL (9.4-12.4) 02/29/24 05:59 Immature Gran % (Auto) 0.4 % 02/29/24 05:59 Neut % (Auto) 71.3 % 02/29/24 05:59 Lymph % (Auto) 17.9 % 02/29/24 05:59 [place] % (Auto) 9.8 % 02/29/24 05:59 Eos % (Auto) 0.2 % 02/29/24 05:59 Baso % (Auto) 0.4 % 02/29/24 05:59 Neut # (Auto) 8.15 K/uL (1.40-6.50) H 02/29/24 05:59 Lymph # (Auto) 2.04 K/uL (1.20-3.40) 02/29/24 05:59 [place] # (Auto) 1.12 K/uL (0.11-0.59) H 02/29/24 05:59 Eos # (Auto) 0.02 K/uL (0.00-0.50) 02/29/24 05:59 Baso # (Auto) 0.04 K/uL (0.00-0.20) 02/29/24 05:59 Immature Gran # (Auto) 0.04 K/uL (0.01-0.20) 02/29/24 05:59 ESR 53 mm/hr (0-20) H 02/28/24 18:24 PT 11.6 Seconds (9.0-12.0) 02/28/24 13:10 INR 1.1 (0.9-1.1) 02/28/24 13:10 APTT 31 Seconds (21-31) 02/28/24 13:10 PTT Ratio 1.2 02/28/24 13:10 Sodium 138 mmol/L (136-145) 02/29/24 05:59 Potassium 3.2 mmol/L (3.5-5.1) L 02/29/24 05:59 Chloride 101 mmol/L (98-107) 02/29/24 05:59 Carbon Dioxide 30 mmol/L (21-32) 02/29/24 05:59 Anion Gap 7 (3-11) 02/29/24 05:59 BUN 28 mg/dl (6-23) H 02/29/24 05:59 Creatinine 1.09 mg/dl (0.6-1.4) 02/29/24 05:59 Est Cr Clr Drug Dosing 69.5 ml/min 02/29/24 05:59 Est GFR ( Amer) 75.0 ml/min 02/29/24 05:59 Est GFR (Non-Af Amer) 64.7 ml/min 02/29/24 05:59 BUN/Creatinine Ratio 25.7 (10-20) H 02/29/24 05:59 Glucose 150 mg/dl (70-99(Fasting)) H 02/29/24 05:59 POC Glucose 187 mg/dl (70-99) H 02/29/24 20:26 Estimat Average Glucose 171 mg/dl 02/29/24 05:59 Hemoglobin A1c 7.6 % (4.5-5.6) H 02/29/24 05:59 Lactate 1.8 mmol/L (0.4-2.0) 02/28/24 15:43 Calcium 8.6 mg/dl (8.6-10.3) 02/29/24 05:59 Magnesium 1.9 mg/dl (1.7-2.4) 02/28/24 13:10 Total Bilirubin 0.9 mg/dl (0.2-1.0) 02/28/24 13:10 AST 21 U/L (13-39) 02/28/24 13:10 ALT 20 U/L (7-52) 02/28/24 13:10 Alkaline Phosphatase 75 U/L (34-104) 02/28/24 13:10 Troponin I High Sens 12.7 pg/ml (0-20) 02/28/24 13:10 C-Reactive Protein 25.05 mg/dl (0-0.5) H 02/29/24 05:59 B-Natriuretic Peptide 109 pg/ml (0-100) H 02/28/24 13:10 Total Protein 7.4 gm/dl (6.0-8.3) 02/28/24 13:10 Albumin 3.8 gm/dl (3.4-5.0) 02/28/24 13:10 Globulin 3.6 gm/dl (2.5-4.0) 02/28/24 13:10 Albumin/Globulin Ratio 1.1 (0.9-2) 02/28/24 13:10 Procalcitonin 5.09 ng/ml (0-0.5) H 02/28/24 13:10 Urine Color Yellow 02/28/24 20:00 Urine Appearance Clear (Clear) 02/28/24 20:00 Urine pH 5.5 (4.5-7.5) 02/28/24 20:00 Ur Specific Bliss 1.022 (1.000-1.030) 02/28/24 20:00 Urine Protein 2+ (Negative) H 02/28/24 20:00 Urine Glucose (UA) 1+ (Negative) H 02/28/24 20:00 Urine Ketones Negative (Negative) 02/28/24 20:00 Urine Blood Negative (Negative) 02/28/24 20:00 Urine Nitrite Negative (Negative) 02/28/24 20:00 Urine Bilirubin Negative (Negative) 02/28/24 20:00 Urine Urobilinogen Negative (Negative) 02/28/24 20:00 Ur Leukocyte Esterase Negative (Negative) 02/28/24 20:00 Urine WBC (Auto) 0-5 /hpf (0-5) 02/28/24 20:00 Urine RBC (Auto) 0-2 /hpf (0-2) 02/28/24 20:00 U Hyaline Cast (Auto) 6-10 /lpf (0-2) H 02/28/24 20:00 U Epithel Cells (Auto) 3-5 /hpf (0-2) H 02/28/24 20:00 Urine Bacteria (Auto) None Seen (None Seen) 02/28/24 20:00 Hyaline Casts Present /lpf (None Presnt) A 02/28/24 20:00 WBC Casts Present /lpf (None Prsent) A 02/28/24 20:00 Nasal Screen MRSA (PCR) Negative (Negative) 02/28/24 17:39 Streptococcus sp PCR DETECTED (NotDetected) A 02/28/24 13:10 Strep agalactiae (PCR) DETECTED (NotDetected) A 02/28/24 13:10 Bld Cult ID Panel PCR See PCR Comment (NotDetected) 02/28/24 13:10 Spec: [id number] Collected: 02/28/24-1738 Received: 02/28/24-[address]: Vilma Son MD Source: Foot OV Order: Ordered: Surf Wnd Cul/Sm Procedure Result Verified Site Gram Stain Final 02/28/24-2099 Gram Stain Result No WBCs Seen No Organisms Seen Surface Wound Culture Preliminary 02/29/24-1026 Pin-point growth present, reincubating. Spec: [id number] Collected: 02/28/24-1543 Received: 02/28/24-[address]: TOMY,ED Copy To: Vilma Son MD Source: Blood OV Order: Ordered: Blood Culture Comments: same time. Blood culture drawn venously from Right Arm. Procedure Result Verified Site Blood Culture Aerobic Preliminary 02/29/24-1601 No growth in Aerobic bottle after 24 hours. Blood Culture Anaerobic Preliminary 02/29/24-1059 Organism 1 Gram positive cocci in chains Sens Sensitivities Dependent on Further Identification Phoned positive Blood Culture Gram Stain report to Tereso Valenzuela on 02/29/24 at 1058 [place] [id number]. [place] [id number]. Blood Cx from 02/29/24 Pending Impressions Chest X-Ray 02/28/24 12:39 SINGLE VIEW CHEST CLINICAL HISTORY: Sepsis. FINDINGS: 2 PA chest radiographs are obtained. No prior studies are available for comparison at the time of dictation. The cardiomediastinal silhouette is top normal for projection. There is mild left basilar atelectasis. The lungs and pleural spaces are otherwise clear. No pneumothorax is seen. The skeletal structures are osteopenic. The bony thorax is grossly intact. Mild degenerative change is noted in the shoulders and spine. IMPRESSION: No active disease in the chest. ACT 112: Negative or not required by law. Electronically signed by: Navid Franco M.D. 02/28/2024 2:15 PM Foot MRI 02/29/24 13:27 MRI OF THE RIGHT FOREFOOT COMBO CLINICAL HISTORY: Cellulitis. Bacteremia. COMPARISON STUDY: No priors. TECHNIQUE: MRI of the right forefoot is performed utilizing various T1 and T2- weighted sequences in the axial, sagittal, and coronal planes. Contrast-enhanced sequences are acquired following the IV administration of 10.2 mL of Gadavist. Note that interpretation is suboptimal without plain film correlate. FINDINGS: A marker has been placed along the plantar aspect of the forefoot at the level of the second and third metatarsal heads. A tiny wound is seen at this site, best seen on axial image #34. Mild soft tissue edema at this site likely represents cellulitis. No fluid collection is seen to suggest abscess. The visualized flexor and extensor tendons appear intact. Imaged portions of the plantar fascia are normal. There is no underlying marrow change to suggest osteomyelitis. There is drop in T1 signal within the dorsal aspect of the navicular, best seen on sagittal image #23. There is no corresponding marrow edema and this may represent sclerosis. There is a joint effusion at the first metatarsophalangeal joint. The Lisfranc ligament is intact. Nonspecific fluid is partially visualized around the talus, as well as between the calcaneus and cuboid. IMPRESSION: 1. There is no MRI evidence of osteomyelitis as clinically queried. 2. Findings suggest cellulitis of the forefoot with a small plantar wound at the level of the second and third metatarsal heads. 3. No organized fluid collection is seen to suggest abscess. 4. There is nonspecific drop in T1 signal within the superior aspect of the navicular, which may represent sclerotic change. There is no corresponding marrow edema. Radiographic correlation is recommended. 5. There is a joint effusion at the first metatarsophalangeal joint. 6. Nonspecific fluid is partially visualized around the talus, as well as between the calcaneus and the cuboid. This may also relate to joint effusions. 7. Additional findings as above. Dictated: 02/29/2024 6:35 PM Transcribed: 02/29/2024 7:14 PM [facility] [id number] [email or web address] Electronically signed by: Navid Franco M.D. 02/29/2024 8:21 PM
--- NOTE | 2024-02-29 20:23 | Magnetic Resonance Report ---
MRI OF THE RIGHT FOREFOOT COMBO CLINICAL HISTORY: Cellulitis. Bacteremia. COMPARISON STUDY: No priors. TECHNIQUE: MRI of the right forefoot is performed utilizing various T1 and T2-weighted sequences in t he axial, sagittal, and coronal planes. Contrast-enhanced sequences are acquired following the IV adm inistration of 10.2 mL of Gadavist. Note that interpretation is suboptimal without plain film correla te. FINDINGS: A marker has been placed along the plantar aspect of the forefoot at the level of the secon d and third metatarsal heads. A tiny wound is seen at this site, best seen on axial image #34. Mild s oft tissue edema at this site likely represents cellulitis. No fluid collection is seen to suggest ab scess. The visualized flexor and extensor tendons appear intact. Imaged portions of the plantar fasci a are normal. There is no underlying marrow change to suggest osteomyelitis. There is drop in T1 sign al within the dorsal aspect of the navicular, best seen on sagittal image #23. There is no correspond ing marrow edema and this may represent sclerosis. There is a joint effusion at the first metatarsoph alangeal joint. The Lisfranc ligament is intact. Nonspecific fluid is partially visualized around the talus, as well as between the calcaneus and cuboid. IMPRESSION: 1. There is no MRI evidence of osteomyelitis as clinically queried. 2. Findings suggest cellulitis of the forefoot with a small plantar wound at the level of the second and third metatarsal heads. 3. No organized fluid collection is seen to suggest abscess. 4. There is nonspecific drop in T1 signal within the superior aspect of the navicular, which may repr esent sclerotic change. There is no corresponding marrow edema. Radiographic correlation is recommend ed. 5. There is a joint effusion at the first metatarsophalangeal joint. 6. Nonspecific fluid is partially visualized around the talus, as well as between the calcaneus and t he cuboid. This may also relate to joint effusions. 7. Additional findings as above. Dictated: 02/29/2024 6:35 PM Transcribed: 02/29/2024 7:14 PM [place] [id number] [email or web address] Electronically signed by: Navid Franco M.D. 02/29/2024 8:21 PM
[2024-02-29] MEDS: LANTUS PER UNIT CHARGE SQ SCH (21:23)
[2024-03-01 06:37] LABS: Basophils # (auto) 0.02 K/uL (0.00-0.20); Basophils % (auto) 0.3 %; Eosinophils # (auto) 0.03 K/uL (0.00-0.50); Eosinophils % (auto) 0.4 %; Hematocrit (blood only) 35.2 % (42.0-52.0); Hemoglobin 12.2 g/dl (14.0-18.0); Immature Granulocytes # (auto) 0.04 K/uL (0.01-0.20); Immature Granulocytes % (auto) 0.5 %; Lymphocytes % (auto) 24.7 %; Mean Corpuscular Hemoglobin 30.2 pg (25.0-34.0); Mean Corpuscular Hgb Conc 34.7 g/dL (32.0-36.0); Mean Corpuscular Volume 87.1 fL (80.0-100.0); Mean Platelet Volume 11.3 fL (9.4-12.4); Monocytes # (auto) 0.89 K/uL (0.11-0.59); Monocytes % (auto) 11.6 %; Neutrophils # (auto) 4.82 K/uL (1.40-6.50); Neutrophils % (auto) 62.5 %; Platelet Count 193 K/uL (130-400); RDW Coefficient of Variation 12.3 % (11.5-14.5); Red Blood Count 4.04 M/uL (4.70-6.10)
[2024-03-01 06:56] LABS: BUN Creatinine Ratio 20.8 (10-20); C Reactive Protein 17.73 mg/dl (0-0.5); Calcium 8.2 mg/dl (8.6-10.3); Est GFR (African American) 82.2 ml/min; Est GFR (Non-African American) 70.9 ml/min; Potassium 3.4 mmol/L (3.5-5.1)
--- NOTE | 2024-03-01 09:28 | XCELERA ---
[id number]\[id number]
[2024-03-01] MEDS: POTASSIUM CHLORIDE CRTAB 20 MEQ TABCR PO STA (09:34)
--- NOTE | 2024-03-01 14:20 | Hospitalist Progress Note ---
Date of Service March 01, 2024 Assessment & Plan (1) Septicemia: Plan: Right foot wound and cellulitis. He has what looks like a plantar wart/callus that was recently debrided on 2 occasions in the podiatry office that is now draining some fluid on admission with surrounding foot cellulitis and significant edema. With leukocytosis at 16.22 on arrival, febrile at home, tachycardia, soft BPs on arrival, procalcitonin elevated at 5.09, Lactate WNL at 1.8, CRP elevated at 25, ESR elevated at 53 He has no artificial joints or implants. Blood cultures now growing Streptococcus agalactiae in the anaerobic bottles / Repeat BCxs 02/28-NGTD Wound culture with Staph species MRI right foot no OM or abscess, but with cellulitis ECHO normal, no valvular veg Appreciate Ortho consult-no need for surgical intervention, can weight bear on heel Fevers have resolved, leukocytosis resolved, erythema improved but still with significant edema and pain, CRP and Procal both trending downward Consult infectious disease on Saturday Continue broad-spectrum coverage for now with daptomycin which would cover for the Streptococcus and Staph as well as Zosyn to cover for Pseudomonas (he has diabetes) as well as coverage for anaerobic bacteria Follow wound culture final ID and sensi Repeat blood cultures again today and daily until negative x 2 sets Follow CBC, BMP, CRP in the morning Add on Tylenol 1000mg po q8h prn pain and oxycodone 5mg po q6h prn moderate- severe pain Elevate right leg above heart more frequently (2) Cellulitis of foot: Plan: As above (3) LAURA (acute kidney injury): Plan: Mild; BUN 40, creatinine 1.35, and EGFR 49.9 on arrival, now improved with creatinine down to 1.09, BUN down to 28 after receiving IV fluid resuscitation Continue to hold losartan and HCTZ Follow BMP Hypokalemia-potassium remains mildly low but improved at 3.4-give potassium chloride 20 mill equivalents p.o. x 1 and follow labs in the morning (4) Diabetes: Plan: Recently diagnosed and is on metformin as an outpatient. Hemoglobin A1c here is 7.6% Continue NovoLog supplemental insulin and Lantus 5 units at bedtime for improved control in the setting of infection Continue diabetic diet and Accu-Cheks (5) Sleep apnea: Plan: Continue CPAP at bedtime (6) Hypertension: Plan: Blood pressures are mildly elevated Holding HCTZ and home losartan due to mild acute kidney injury and BPs are normal Continue home baby aspirin Plan BPH-continue home tamsulosin, finasteride Disposition: Continued stay on PCU, improving, can likely downgrade to med/surg in AM Full code VTE PPx: change heparin to once daily Lovenox now that renal function improved Admission and Anticipated Discharge Date Admission Date: February 28, 2024 Subjective Pt having ongoing pain in right foot, swelling still very significant. Otherwise denies CP, SOB, nausea, no diarrhea. Tele with NSR, rates 70-90s, one small burst SVT Physical Exam Constitutional: WD/WN, vitals as above Respiratory: normal respiratory effort, lungs clear to auscultation Cardiovascular: Rate/Rhythm: regular rate and regular rhythm Heart Sounds: no murmur Extremities: + edema (3+ pitting in Right foot and ankle) Gastrointestinal (Abdomen): normal bowel sounds, soft, nontender, no hepatosplenomegaly Musculoskeletal: Ankle: + ankle abnormal to inspection (Significant 2-3+ pitting edema of the right foot and ankle) and + skin erythema (Right dorsal foot, slightly receded from line of demarcation) Skin: + lesion (Third MTP head plantar surface with plantar wart/callus, no drainage) and + erythema (right dorsal foot, receding from marked line,becoming darker) Psychiatric: A+Ox3, euthymic affect Results & Data Results & Data Vital Signs (Past 12 Hours) Vital Signs Temp Pulse Pulse Resp BP BP Pulse Ox 03/01/24 10:30 36.9 C 71 20 115/68 95 03/01/24 08:00 76 03/01/24 07:45 36.4 C L 96 H 21 132/78 96 03/01/24 03:30 36.5 C 85 20 107/66 96 03/01/24 03:26 36.7 C 76 18 156/77 H 96 O2 Del Method O2 Flow Rate 03/01/24 10:30 Room Air 03/01/24 08:00 03/01/24 07:45 Room Air 03/01/24 03:30 Nasal Cannula 2.5 03/01/24 03:26 Room Air Laboratory Results CBC, BMP, CRP, Procal, WOund cx, BCxs reviewed PG Care Time/CCT Total # of Minutes Spent Total Time Spent with Patient: Total time spent is greater than 50% in coordination of care (as documented) at patient's floor/unit and/or counseling patient: Coding Level of Care Code 27061 SUB INP/OBS CARE 2MIN Diagnoses Septicemia A41.9 Cellulitis of foot L03.119 LAURA (acute kidney injury) N17.9 Diabetes E11.9 Sleep apnea G47.30 Hypertension I10
[2024-03-01] MEDS ORDERED: oxyCODONE HCL IR 5 MG TAB (IMMEDIATE RELEASE) PO PRN (14:21)
[2024-03-01] MEDS: ACETAMINOPHEN 500 MG TAB PO PRN (14:34)
--- NOTE | 2024-03-01 15:27 | Orthopedic Progress Note ---
Date of Service March 01, 2024 Assessment & Plan (1) Cellulitis of foot: Plan: IMPRESSION: Right foot diabetic infection/cellulitis, no abscess or area of fluid collection PLAN: Continue conservative management Continue with IV Antibiotics. WBAT through heel. Continue pain control Continue care per primary service. Will continue to follow Admission and Anticipated Discharge Date Admission Date: February 28, 2024 Subjective Feeling much better Physical Exam Physical Exam: RLE: Sensation to light touch unchanged. BCR < 2 sec. Wiggling toes and ankle. Decreased Swelling and erythema about the foot and ankle from yesterday. There is a callous area with a pin sized black spot over the plantar aspect of the ball of his foot. Results & Data Vital Signs (Past 12 Hours) Vital Signs Temp Pulse Pulse Resp BP BP Pulse Ox 03/01/24 10:30 36.9 C 71 20 115/68 95 03/01/24 08:00 76 03/01/24 07:45 36.4 C L 96 H 21 132/78 96 03/01/24 03:30 36.5 C 85 20 107/66 96 O2 Del Method O2 Flow Rate 03/01/24 10:30 Room Air 03/01/24 08:00 03/01/24 07:45 Room Air 03/01/24 03:30 Nasal Cannula 2.5
[2024-03-01] MEDS: ENOXAPARIN INJ 40 MG/0.4 ML SYR SQ SCH (20:02)
[2024-03-02 07:43] LABS: BUN Creatinine Ratio 19.6 (10-20); C Reactive Protein 12.83 mg/dl (0-0.5); Calcium 8.4 mg/dl (8.6-10.3); Creatinine Clr Calc Pharmacy 69.9 ml/min; Est GFR (African American) 76.7 ml/min; Est GFR (Non-African American) 66.1 ml/min; Magnesium 1.9 mg/dl (1.7-2.4); Potassium 3.9 mmol/L (3.5-5.1)
[2024-03-02 08:01] LABS: Basophils # (auto) 0.03 K/uL (0.00-0.20); Basophils % (auto) 0.4 %; Eosinophils # (auto) 0.07 K/uL (0.00-0.50); Hematocrit (blood only) 35.9 % (42.0-52.0); Hemoglobin 12.3 g/dl (14.0-18.0); Immature Granulocytes # (auto) 0.05 K/uL (0.01-0.20); Immature Granulocytes % (auto) 0.7 %; Lymphocytes # (auto) 1.79 K/uL (1.20-3.40); Lymphocytes % (auto) 24.4 %; Mean Corpuscular Hemoglobin 30.6 pg (25.0-34.0); Mean Corpuscular Hgb Conc 34.3 g/dL (32.0-36.0); Mean Corpuscular Volume 89.3 fL (80.0-100.0); Mean Platelet Volume 11.4 fL (9.4-12.4); Monocytes # (auto) 0.77 K/uL (0.11-0.59); Monocytes % (auto) 10.5 %; Neutrophils # (auto) 4.63 K/uL (1.40-6.50); Platelet Count 206 K/uL (130-400); RDW Coefficient of Variation 12.5 % (11.5-14.5); RDW Standard Deviation 41.1 fL (36.4-46.3); Red Blood Count 4.02 M/uL (4.70-6.10); White Blood Count 7.34 K/ul (4.8-10.8)
--- NOTE | 2024-03-02 08:32 | Orthopedic Progress Note ---
Date of Service March 02, 2024 Assessment & Plan (1) Cellulitis of foot: Plan: IMPRESSION: Right foot diabetic infection/cellulitis, no abscess or area of fluid collection PLAN: Continue conservative management Continue with IV Antibiotics. WBAT through heel. Continue pain control Continue care per primary service. Dr. Lorenz, podiatry, will see and evaluate the plantar aspect of the foot. Admission and Anticipated Discharge Date Admission Date: February 28, 2024 Subjective Feeling much better Physical Exam Physical Exam: RLE: Sensation to light touch unchanged. BCR < 2 sec. Wiggling toes and ankle. Decreased Swelling and erythema about the foot and ankle from yesterday. There is a callous area with a pin sized black spot over the plantar aspect of the ball of his foot. Results & Data Vital Signs (Past 12 Hours) Vital Signs Temp Pulse Pulse Resp BP Pulse Ox O2 Del Method 03/02/24 08:05 37.0 C 73 18 159/86 H 94 Room Air 03/02/24 07:16 66 03/02/24 03:28 36.8 C 62 18 131/68 94 Room Air 03/01/24 23:17 86 03/01/24 23:15 36.8 C 65 18 146/70 H 94 Room Air 03/01/24 21:07 36.9 C 153/81 H Laboratory Results Laboratory Results WBC 7.34 K/ul (4.8-10.8) 03/02/24 06:14 RBC 4.02 M/uL (4.70-6.10) L 03/02/24 06:14 Hgb 12.3 g/dl (14.0-18.0) L 03/02/24 06:14 Hct 35.9 % (42.0-52.0) L 03/02/24 06:14 MCV 89.3 fL (80.0-100.0) 03/02/24 06:14 MCH 30.6 pg (25.0-34.0) 03/02/24 06:14 MCHC 34.3 g/dL (32.0-36.0) 03/02/24 06:14 RDW Std Deviation 41.1 fL (36.4-46.3) 03/02/24 06:14 RDW Coeff of Abdi 12.5 % (11.5-14.5) 03/02/24 06:14 Plt Count 206 K/uL (130-400) 03/02/24 06:14 MPV 11.4 fL (9.4-12.4) 03/02/24 06:14 Immature Gran % (Auto) 0.7 % 03/02/24 06:14 Neut % (Auto) 63.0 % 03/02/24 06:14 Lymph % (Auto) 24.4 % 03/02/24 06:14 Gilmer % (Auto) 10.5 % 03/02/24 06:14 Eos % (Auto) 1.0 % 03/02/24 06:14 Baso % (Auto) 0.4 % 03/02/24 06:14 Neut # (Auto) 4.63 K/uL (1.40-6.50) 03/02/24 06:14 Lymph # (Auto) 1.79 K/uL (1.20-3.40) 03/02/24 06:14 Gilmer # (Auto) 0.77 K/uL (0.11-0.59) H 03/02/24 06:14 Eos # (Auto) 0.07 K/uL (0.00-0.50) 03/02/24 06:14 Baso # (Auto) 0.03 K/uL (0.00-0.20) 03/02/24 06:14 Immature Gran # (Auto) 0.05 K/uL (0.01-0.20) 03/02/24 06:14 ESR 53 mm/hr (0-20) H 02/28/24 18:24 PT 11.6 Seconds (9.0-12.0) 02/28/24 13:10 INR 1.1 (0.9-1.1) 02/28/24 13:10 APTT 31 Seconds (21-31) 02/28/24 13:10 PTT Ratio 1.2 02/28/24 13:10 Sodium 140 mmol/L (136-145) 03/02/24 06:14 Potassium 3.9 mmol/L (3.5-5.1) 03/02/24 06:14 Chloride 104 mmol/L (98-107) 03/02/24 06:14 Carbon Dioxide 32 mmol/L (21-32) 03/02/24 06:14 Anion Gap 4 (3-11) 03/02/24 06:14 BUN 21 mg/dl (6-23) 03/02/24 06:14 Creatinine 1.07 mg/dl (0.6-1.4) 03/02/24 06:14 Est Cr Clr Drug Dosing 69.9 ml/min 03/02/24 06:14 Est GFR ( Amer) 76.7 ml/min 03/02/24 06:14 Est GFR (Non-Af Amer) 66.1 ml/min 03/02/24 06:14 BUN/Creatinine Ratio 19.6 (10-20) 03/02/24 06:14 Glucose 144 mg/dl (70-99(Fasting)) H 03/02/24 06:14 POC Glucose 146 mg/dl (70-99) H 03/02/24 07:15 Estimat Average Glucose 171 mg/dl 02/29/24 05:59 Hemoglobin A1c 7.6 % (4.5-5.6) H 02/29/24 05:59 Lactate 1.8 mmol/L (0.4-2.0) 02/28/24 15:43 Calcium 8.4 mg/dl (8.6-10.3) L 03/02/24 06:14 Magnesium 1.9 mg/dl (1.7-2.4) 03/02/24 06:14 Total Bilirubin 0.9 mg/dl (0.2-1.0) 02/28/24 13:10 AST 21 U/L (13-39) 02/28/24 13:10 ALT 20 U/L (7-52) 02/28/24 13:10 Alkaline Phosphatase 75 U/L (34-104) 02/28/24 13:10 Troponin I High Sens 12.7 pg/ml (0-20) 02/28/24 13:10 C-Reactive Protein 12.83 mg/dl (0-0.5) H 03/02/24 06:14 B-Natriuretic Peptide 109 pg/ml (0-100) H 02/28/24 13:10 Total Protein 7.4 gm/dl (6.0-8.3) 02/28/24 13:10 Albumin 3.8 gm/dl (3.4-5.0) 02/28/24 13:10 Globulin 3.6 gm/dl (2.5-4.0) 02/28/24 13:10 Albumin/Globulin Ratio 1.1 (0.9-2) 02/28/24 13:10 Procalcitonin 1.77 ng/ml (0-0.5) H 03/01/24 06:00 Urine Color Yellow 02/28/24 20:00 Urine Appearance Clear (Clear) 02/28/24 20:00 Urine pH 5.5 (4.5-7.5) 02/28/24 20:00 Ur Specific Brumley 1.022 (1.000-1.030) 02/28/24 20:00 Urine Protein 2+ (Negative) H 02/28/24 20:00 Urine Glucose (UA) 1+ (Negative) H 02/28/24 20:00 Urine Ketones Negative (Negative) 02/28/24 20:00 Urine Blood Negative (Negative) 02/28/24 20:00 Urine Nitrite Negative (Negative) 02/28/24 20:00 Urine Bilirubin Negative (Negative) 02/28/24 20:00 Urine Urobilinogen Negative (Negative) 02/28/24 20:00 Ur Leukocyte Esterase Negative (Negative) 02/28/24 20:00 Urine WBC (Auto) 0-5 /hpf (0-5) 02/28/24 20:00 Urine RBC (Auto) 0-2 /hpf (0-2) 02/28/24 20:00 U Hyaline Cast (Auto) 6-10 /lpf (0-2) H 02/28/24 20:00 U Epithel Cells (Auto) 3-5 /hpf (0-2) H 02/28/24 20:00 Urine Bacteria (Auto) None Seen (None Seen) 02/28/24 20:00 Hyaline Casts Present /lpf (None Presnt) A 02/28/24 20:00 WBC Casts Present /lpf (None Prsent) A 02/28/24 20:00 Nasal Screen MRSA (PCR) Negative (Negative) 02/28/24 17:39 Streptococcus sp PCR DETECTED (NotDetected) A 02/28/24 13:10 Strep agalactiae (PCR) DETECTED (NotDetected) A 02/28/24 13:10 Bld Cult ID Panel PCR See PCR Comment (NotDetected) 02/28/24 13:10 Impressions Chest X-Ray 02/28/24 12:39 SINGLE VIEW CHEST CLINICAL HISTORY: Sepsis. FINDINGS: 2 PA chest radiographs are obtained. No prior studies are available for comparison at the time of dictation. The cardiomediastinal silhouette is top normal for projection. There is mild left basilar atelectasis. The lungs and pleural spaces are otherwise clear. No pneumothorax is seen. The skeletal structures are osteopenic. The bony thorax is grossly intact. Mild degenerative change is noted in the shoulders and spine. IMPRESSION: No active disease in the chest. ACT 112: Negative or not required by law. Electronically signed by: Navid Franco M.D. 02/28/2024 2:15 PM Foot MRI 02/29/24 13:27 MRI OF THE RIGHT FOREFOOT COMBO CLINICAL HISTORY: Cellulitis. Bacteremia. COMPARISON STUDY: No priors. TECHNIQUE: MRI of the right forefoot is performed utilizing various T1 and T2- weighted sequences in the axial, sagittal, and coronal planes. Contrast-enhanced sequences are acquired following the IV administration of 10.2 mL of Gadavist. Note that interpretation is suboptimal without plain film correlate. FINDINGS: A marker has been placed along the plantar aspect of the forefoot at the level of the second and third metatarsal heads. A tiny wound is seen at this site, best seen on axial image #34. Mild soft tissue edema at this site likely represents cellulitis. No fluid collection is seen to suggest abscess. The visualized flexor and extensor tendons appear intact. Imaged portions of the plantar fascia are normal. There is no underlying marrow change to suggest osteomyelitis. There is drop in T1 signal within the dorsal aspect of the navicular, best seen on sagittal image #23. There is no corresponding marrow edema and this may represent sclerosis. There is a joint effusion at the first metatarsophalangeal joint. The Lisfranc ligament is intact. Nonspecific fluid is partially visualized around the talus, as well as between the calcaneus and cuboid. IMPRESSION: 1. There is no MRI evidence of osteomyelitis as clinically queried. 2. Findings suggest cellulitis of the forefoot with a small plantar wound at the level of the second and third metatarsal heads. 3. No organized fluid collection is seen to suggest abscess. 4. There is nonspecific drop in T1 signal within the superior aspect of the navicular, which may represent sclerotic change. There is no corresponding marrow edema. Radiographic correlation is recommended. 5. There is a joint effusion at the first metatarsophalangeal joint. 6. Nonspecific fluid is partially visualized around the talus, as well as between the calcaneus and the cuboid. This may also relate to joint effusions. 7. Additional findings as above. Dictated: 02/29/2024 6:35 PM Transcribed: 02/29/2024 7:14 PM [place] [id number] [email or web address] Electronically signed by: Navid Franco M.D. 02/29/2024 8:21 PM
--- NOTE | 2024-03-02 08:40 | Infectious Disease Consult ---
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 He sustained an injury to his right foot 1.5 months ago, which he initially neglected, then developed severe pain in his foot over a few days WIRE TINNER with erythema, swelling and warmth, along with fevers. He was started on doxycycline 3 days WIRE TINNER, which he took. Here, he has been afebrile, vss. WBC 16.22, Cr 1.35, LFT wnl, ESR 53, CRP 33. PCT 5.09. UA neg. BCX with GBS. CXR neg. MRI R foot with findings of cellulitis of forefoot, small plantar wound, no collection, joint effusion of first MTP, no e/o OM. He was admitted with right foot cellulitis and started on daptomycin and zosyn. TTE negative for valvular vegetations or significant regurgitation. Seen by ortho, no intervention. ID consulted 03/02. No hardware, no spinal/joint tenderness. For Strep bacteremia, he can complete PO antibiotics for a duration of 14 days. Can use high dose augmentin to cover for anaerobes as well for a diabetic foot infection. Regarding wound cx, I spoke to micro and Staph species (which is rare on cx) seems to be S aureus, but still unclear if its MSSA v MRSA as results were contradictory and they are re-running specimen which will result tomorrow. Patients foot seems to have improved significantly on current regimen. We can continue on MRSA coverage while waiting for results, and this would be for treating just the cellulitis, which can be for 7 days. # Bacteremia 2/2 Group B Strep # Right foot cellulitis with wound Cx + Staph spp # LAURA improving # Recently dx diabetes - f/u wound cx sensitivities (will result tomorrow) - Steffany changed zosyn to Unasyn 3g IV q6h - continue daptomycin while waiting for wound cx - if WCX results with MRSA OR plans to discharge prior to WCx results, can send home on doxycycline 100mg PO bid for total 7d (start 02/27, end 03/05) + augmentin 1g PO tid x 14 days (start 02/28, end 03/13) - if WCX results with MSSA, he can be discharged on augmentin 1g PO tid x 14 days (start 02/28, end 03/13) ID will continue to follow. If questions or concerns, contact Infectious Disease Call Center . Connie Amin MD [facility], Division of Infectious Diseases [facility]: [phone] Consultation Information Consultation was provided via telemedicine using two-way real-time interactive telecommunication between the patient and the telemedicine provider. For the duration of the visit, the provider was performing the assessment from a different facility than the patient. This includesuse of bluetooth stethoscope forauscultationperformed by the telepresenter that the telemedicine provider can hear if described in the physical exam. [facility] contact information: Please call [facility] Call Center [phone]. 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 He sustained an injury to his right foot 1.5 months ago, which he initially neglected. He developed a callus on the bottom of his foot due to a pair of boots with rough soles. He developed severe pain in his foot over a few days WIRE TINNER with erythema, swelling and warmth. Also with fevers to 101 and night sweats. He was started on doxycycline 3 days WIRE TINNER, which he took. Here, he has been afebrile, vss. WBC 16.22, Cr 1.35, LFT wnl, ESR 53, CRP 33. PCT 5.09. UA neg. BCX with GBS. CXR neg. MRI R foot with findings of cellulitis of forefoot, small plantar wound, no collection, joint effusion of first MTP, no e/o OM. He was admitted with right foot cellulitis and started on daptomycin and zosyn. TTE negative for valvular vegetations or significant regurgitation. Seen by ortho, no intervention. ID consulted 03/02. On evaluation, patient reports feeling much better compared to admission. Redness is also improving and was initially only on his foot. He does not have any joint pains or back pain. No hardware, devices or artificial joints. He does not have any abdominal pain, vomiting, diarrhea. Allergies Allergy/AdvReac Type Severity Reaction Status Date / Time No Known Allergies Allergy Verified 02/28/24 14:58 Home Medications Medication Instructions Recorded Confirmed Type ascorbic acid (vitamin C) 500 mg 500 mg PO QAM 09/17/18 02/28/24 History tablet (Vitamin C) aspirin 81 mg tablet,delayed 81 mg PO QPM 09/17/18 02/28/24 History release multivitamin 1 tab PO QAM 09/17/18 02/28/24 History tamsulosin 0.4 mg capsule 0.4 mg PO QAM 09/17/18 02/28/24 History naproxen sodium 220 mg tablet 220 mg PO DAILY PRN Pain, Mild 10/02/18 02/28/24 History (Aleve) glucosamine sulfate 2KCl 1,000 mg 2,000 mg PO QAM 03/16/20 02/28/24 History tablet (Glucosamine Relief) turmeric root extract 500 mg 500 mg PO QAM 09/15/20 02/28/24 History capsule hydrochlorothiazide 25 mg tablet 25 mg PO QAM 10/09/23 02/28/24 History losartan 100 mg tablet 100 mg PO QPM 10/09/23 02/28/24 History finasteride 5 mg tablet 5 mg PO DAILY #90 tabs 12/02/23 02/28/24 Rx metformin 500 mg tablet 500 mg PO BID 02/28/24 02/28/24 History Patient History Medical History Ascending aorta dilatation Follows with Dr. Pressley, monitoring Echo 12/2022: Mildly dilated ascending aorta (3.8cm in diameter) BPH (benign prostatic hyperplasia) Chronic back pain Hypertension Osteoarthritis Sleep apnea CPAP Surgical History History of cataract surgery R/L History of colonoscopy History of microdiscectomy L4-L5 History of repair of left rotator cuff History of wisdom tooth extraction S/P epidural steroid injection multiple Family History Other No family history of adverse response to anesthesia Social History Smoking Status: Former smoker Tobacco Type: Cigarettes Second Hand Exposure: No; Do You Dip or Chew Tobacco: No; Tobacco Cessation Education Requested by Patient: No Hx Alcohol Use: Yes Alcohol type: beer Hx Substance Use: No Preferred Language: Sami Communication Ability: Effective 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 Physical Exam Physical Exam: General: Awake, alert, no acute distress HEENT: NC/AT, EOMI, mmm Neck: supple Lungs: respirations non-labored Heart: nl peripheral perfusion Abdomen: soft, NT/ND Back: no spinal tenderness Ext: right foot with receding erythema noted on top of foot, healing wound on bottom of foot Skin: as above Neuro: moving all extremities Results & Data Vital Signs (Past 12 Hours) Vital Signs Temp Pulse Pulse Resp BP Pulse Ox O2 Del Method 03/02/24 08:05 37.0 C 73 18 159/86 H 94 Room Air 03/02/24 07:16 66 03/02/24 03:28 36.8 C 62 18 131/68 94 Room Air 03/01/24 23:17 86 03/01/24 23:15 36.8 C 65 18 146/70 H 94 Room Air 03/01/24 21:07 36.9 C 153/81 H Laboratory Results Labs reviewed. Diagnostic Findings Imaging reviewed.
[2024-03-02] MEDS: AMPICILLIN/SULBACTAM SOD 3,000 MG in SODIUM CHLOR 0.9% MINI-B 100 ML IV SCH (12:09)
--- NOTE | 2024-03-02 13:53 | Podiatry Consultation ---
Date of Consultation March 02, 2024 Assessment & Plan (1) Cellulitis of foot: I discussed with patient and patient's family who is present at bedside that most likely probably developed hole from the treatment of the plantar wart which eventually became cellulitic this may be secondary to increased time spent on his feet and maceration that may have occurred. Presently the area on the foot is well-healed and improved and is stable. I do feel that the cellulitis should continue to improve with either IV or oral antibiotics per infectious disease recommendations. Based on the MRI study there is no further surgical intervention needed. I will continue to evaluate the patient to ensure that the area heals and will recommend he follow-up with me next Saturday in office and we will plan for that per patient. Patient and family understanding. No further questions noted. (2) Diabetes: History of Present Illness Attending Physician: Marii Roman MD History of Present Illness Patient seen at bedside today at request of my colleague. Patient noted that he was being treated at an outside location by supervisor adult education for a likely plantar wart on the plantar aspect of the right foot. He notes that last week somewhere around Saturday into developed increased swelling pain and redness. He went to the emergency room and was evaluated diagnosed with cellulitis white count was notably 16 now at this point down within normal areas and patient notes that he is feeling a lot better the redness has significantly improved as has the swelling. Patient had an MRI which did not show osteomyelitis or an abscess. Allergies Allergy/AdvReac Type Severity Reaction Status Date / Time No Known Allergies Allergy Verified 02/28/24 14:58 Home Medications Medication Instructions Recorded Confirmed Type ascorbic acid (vitamin C) 500 mg 500 mg PO QAM 09/17/18 02/28/24 History tablet (Vitamin C) aspirin 81 mg tablet,delayed 81 mg PO QPM 09/17/18 02/28/24 History release multivitamin 1 tab PO QAM 09/17/18 02/28/24 History tamsulosin 0.4 mg capsule 0.4 mg PO QAM 09/17/18 02/28/24 History naproxen sodium 220 mg tablet 220 mg PO DAILY PRN Pain, Mild 10/02/18 02/28/24 History (Aleve) glucosamine sulfate 2KCl 1,000 mg 2,000 mg PO QAM 03/16/20 02/28/24 History tablet (Glucosamine Relief) turmeric root extract 500 mg 500 mg PO QAM 09/15/20 02/28/24 History capsule hydrochlorothiazide 25 mg tablet 25 mg PO QAM 10/09/23 02/28/24 History losartan 100 mg tablet 100 mg PO QPM 10/09/23 02/28/24 History finasteride 5 mg tablet 5 mg PO DAILY #90 tabs 12/02/23 02/28/24 Rx metformin 500 mg tablet 500 mg PO BID 02/28/24 02/28/24 History Patient History Medical History BPH (benign prostatic hyperplasia) Osteoarthritis Chronic back pain Surgical History History of cataract surgery R/L S/P epidural steroid injection multiple History of microdiscectomy L4-L5 History of repair of left rotator cuff History of colonoscopy History of wisdom tooth extraction Family History Other No family history of adverse response to anesthesia Social History Smoking Status: Former smoker Tobacco Type: Cigarettes Second Hand Exposure: No; Do You Dip or Chew Tobacco: No; Tobacco Cessation Education Requested by Patient: No Hx Alcohol Use: Yes Alcohol type: beer Hx Substance Use: No Preferred Language: Greek Communication Ability: Effective Medical Surgery Nurse Required: No Beliefs That Will Affect Care: None Current Living Situation: Spouse Other Information That Helps Us Care for You: No Feels Safe at Home: Yes Safety Concerns: Feels Safe At This Time Assistive Devices: Glasses Physical Exam Skin: plantar aspect of the right foot evaluated, there was no further hole or opening or further drainage there was no erythema and in general the area on the plantar aspect of the foot looks significantly improved and stable. Patient still had about +2 pitting edema present on the dorsal aspect of the right foot and ankle as well as some redness which removed some bleeding improved there were markings in the foot of the ankle and again this was significantly improved patient has also seen infectious disease and is currently on antibiotics and MRI confirming cellulitis. There were no further openings or areas of concern on the right lower extremity. Of note the dorsalis pedis pulse was palpable 1 out of 4, posterior tibial pulse palpable 1 out of 4. Results & Data Vital Signs (Past 12 Hours) Vital Signs Temp Pulse Pulse Resp BP Pulse Ox O2 Del Method 03/02/24 11:55 36.8 C 67 19 161/80 H 98 Room Air 03/02/24 08:05 37.0 C 73 18 159/86 H 94 Room Air 03/02/24 07:16 66 03/02/24 03:28 36.8 C 62 18 131/68 94 Room Air
--- NOTE | 2024-03-02 17:42 | Hospitalist Progress Note ---
Date of Service March 02, 2024 Assessment & Plan (1) Septicemia: Plan: Right foot wound and cellulitis as source. With plantar wart that was recently debrided on 2 occasions in the podiatry office that is now draining some fluid on admission with surrounding foot cellulitis and significant edema. With leukocytosis at 16.22 on arrival, febrile at home, tachycardia, soft BPs on arrival, procalcitonin elevated at 5.09, Lactate WNL at 1.8, CRP elevated at 25, ESR elevated at 53 He has no artificial joints or implants. Blood cultures 02/27 w/ Streptococcus agalactiae in the anaerobic bottles 10/13 Repeat BCxs 02/28-NGTD and 03/01 NGTD Wound culture with Staph species-sensitivities pending MRI right foot no OM or abscess, but with cellulitis ECHO normal, no valvular veg Appreciate Ortho consult-no need for surgical intervention, can weight bear on heel Ortho d/w Podiatry who also saw and agrees with current plan Fevers have resolved, leukocytosis resolved, erythema improved, still with significant edema but pain improving, CRP and Procal both trending downward Consult infectious disease appreciated--> plan for Augmentin 1000mg po tid x 2 weeks total for bacteremia and and add on doxy if MRSA from foot for total of 7 days Id wound cx MSSA, then Augmentin also will cover Continue daptomycin and Unasyn (changed from Zosyn) Follow wound culture final ID and sensi Follow blood cultures Follow CBC, BMP, CRP in the morning Continue on Tylenol 1000mg po q8h prn pain and oxycodone 5mg po q6h prn moderate-severe pain Elevate right leg above heart more frequently (2) Cellulitis of foot: Plan: As above (3) LAURA (acute kidney injury): Plan: Mild; BUN 40, creatinine 1.35, and EGFR 49.9 on arrival, now improved with crea tinine down to 1.07 after receiving IV fluid resuscitation Ok to resume home losartan and HCTZ Follow BMP (4) Diabetes: Plan: Recently diagnosed and is on metformin as an outpatient. Hemoglobin A1c here is 7.6% Continue NovoLog supplemental insulin and Lantus 5 units at bedtime for improved control in the setting of infection Continue diabetic diet and Accu-Cheks (5) Sleep apnea: Plan: Continue CPAP at bedtime (6) Hypertension: Plan: Blood pressures are elevated Resume home HCTZ and losartan Continue home baby aspirin Plan BPH-continue home tamsulosin, finasteride Disposition: Continued stay but can downgrade to med/surg, possible discharge to home tomorrow Full code VTE PPx: Lovenox SQ Admission and Anticipated Discharge Date Admission Date: February 28, 2024 Subjective Pt feeling better, less pain and swelling in the foot. Had one somewhat loose stool today but no diarrhea. Denies CP, SOB. Had a low grade temp yesterday and possible chills today but no fevers. Tele with NSR, rates in 60s Physical Exam Constitutional: WD/WN, vitals as above Respiratory: normal respiratory effort, lungs clear to auscultation Cardiovascular: Rate/Rhythm: regular rate and regular rhythm Heart Sounds: no murmur Extremities: + edema (2+ pitting in Right foot and ankle, improving) Gastrointestinal (Abdomen): normal bowel sounds, soft, nontender, no hepatospl enomegaly Musculoskeletal: Ankle: + skin erythema (Right dorsal foot, slightly receded from line of demarcation) Skin: + lesion (Third MTP head plantar surface with plantar wart/callus, no drainage) and + erythema (right dorsal foot, receding from marked line,becoming darker) Psychiatric: A+Ox3, euthymic affect Results & Data Results & Data Vital Signs (Past 12 Hours) Vital Signs Temp Pulse Pulse Resp BP Pulse Ox O2 Del Method 03/02/24 16:10 36.7 C 74 18 156/84 H 96 Room Air 03/02/24 16:00 77 03/02/24 11:55 36.8 C 67 19 161/80 H 98 Room Air 03/02/24 08:05 37.0 C 73 18 159/86 H 94 Room Air 03/02/24 07:16 66 Laboratory Results CBC, BMP, CRP, blood cxs, wound cx reviewed PG Care Time/CCT Total # of Minutes Spent Total Time Spent with Patient: Total time spent is greater than 50% in coordination of care (as documented) at patient's floor/unit and/or counseling patient: Coding Level of Care Code 08146 SUB INP/OBS CARE 2/35MIN Diagnoses Septicemia A41.9 Cellulitis of foot L03.119 LAURA (acute kidney injury) N17.9 Diabetes E11.9 Sleep apnea G47.30 Hypertension I10
[2024-03-02] MEDS: LOSARTAN POTASSIUM 50 MG TAB PO SCH (20:28)
[2024-03-03 06:25] LABS: Basophils # (auto) 0.03 K/uL (0.00-0.20); Basophils % (auto) 0.4 %; Eosinophils % (auto) 1.3 %; Hematocrit (blood only) 33.9 % (42.0-52.0); Hemoglobin 11.8 g/dl (14.0-18.0); Immature Granulocytes # (auto) 0.08 K/uL (0.01-0.20); Lymphocytes # (auto) 1.57 K/uL (1.20-3.40); Lymphocytes % (auto) 19.8 %; Mean Corpuscular Hemoglobin 30.6 pg (25.0-34.0); Mean Corpuscular Hgb Conc 34.8 g/dL (32.0-36.0); Mean Corpuscular Volume 87.8 fL (80.0-100.0); Mean Platelet Volume 10.6 fL (9.4-12.4); Monocytes # (auto) 0.75 K/uL (0.11-0.59); Monocytes % (auto) 9.5 %; Neutrophils # (auto) 5.39 K/uL (1.40-6.50); Platelet Count 252 K/uL (130-400); RDW Coefficient of Variation 12.2 % (11.5-14.5); RDW Standard Deviation 39.3 fL (36.4-46.3); Red Blood Count 3.86 M/uL (4.70-6.10); White Blood Count 7.92 K/ul (4.8-10.8)
[2024-03-03 06:39] LABS: BUN Creatinine Ratio 21.1 (10-20); C Reactive Protein 11.66 mg/dl (0-0.5); Calcium 8.4 mg/dl (8.6-10.3); Creatinine Clr Calc Pharmacy 78.7 ml/min; Est GFR (African American) 88.5 ml/min; Est GFR (Non-African American) 76.4 ml/min; Potassium 3.8 mmol/L (3.5-5.1)
--- NOTE | 2024-03-03 08:11 | Infectious Disease Progress Nt ---
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 He sustained an injury to his right foot 1.5 months ago, which he initially neglected, then developed severe pain in his foot over a few days ANESTHESIOLOGIST ATTENDING with erythema, swelling and warmth, along with fevers. He was started on doxycycline 3 days ANESTHESIOLOGIST ATTENDING, which he took. Here, he has been afebrile, vss. WBC 16.22, Cr 1.35, LFT wnl, ESR 53, CRP 33. PCT 5.09. UA neg. BCX with GBS. WCX with MSSA. CXR neg. MRI R foot with findings of cellulitis of forefoot, small plantar wound, no collection, joint effusion of first MTP, no e/o OM. He was admitted with right foot cellulitis and started on daptomycin and zosyn. TTE negative for valvular vegetations or significant regurgitation. Seen by ortho and podiatry, no intervention. ID consulted 03/02. No hardware, no spinal/joint pains. Strep bacteremia likely 2/2 to his cellulitis. No other deep infection noted on MRI. Will complete 14 days of abx for cellulitis and bacteremia. When hes ready for discharge, would use high dose augmentin to cover for GBS, MSSA from WCX, and anaerobes for a diabetic foot infection with an open wound. # Bacteremia 2/2 Group B Strep # Right foot cellulitis with wound Cx + MSSA and skin nya # LAURA improved # Recently dx diabetes - Steffany stopped daptomycin - continue Unasyn 3g IV q6h while inpatient - on discharge, change abx to augmentin 1g PO tid x 14 days total (start 02/28, end 03/13) ID will discontinue active follow up at this time. Please do not hesitate to reconsult the Infectious Diseases service as needed. Connie Amin MD [facility], Division of Infectious Diseases [employer]: [phone] Admission and Anticipated Discharge Date Admission Date: February 28, 2024 Subjective This patient recommendation is based on a telemedicine consult request which was completed asynchronously through chart review and information provided by the primary physician. The patient was not seen or examined today. The evaluation is consultative in nature and all patient care and treatment decisions can either be accepted or rejected by the patient's primary hospital-based treating physician using their own independent medical judgment for their patient. Time Spent Reviewing Chart: 31+ minutes Results & Data Vital Signs (Past 12 Hours) Vital Signs Temp Pulse Resp BP Pulse Ox O2 Del Method 03/03/24 07:23 37.0 C 71 18 163/80 H 92 Room Air 03/03/24 06:13 165/82 H 03/02/24 21:00 37.3 C 75 18 175/93 H 94 Room Air
--- NOTE | 2024-03-03 08:11 | Hospitalist Progress Note ---
Date of Service March 03, 2024 Assessment & Plan (1) Septicemia: Plan: Right foot wound and cellulitis as source. With plantar wart that was recently debrided on 2 occasions in the podiatry office that is now draining some fluid on admission with surrounding foot cellulitis and significant edema. With leukocytosis at 16.22 on arrival, febrile at home, tachycardia, soft BPs on arrival, procalcitonin elevated at 5.09, Lactate WNL at 1.8, CRP elevated at 25, ESR elevated at 53 He has no artificial joints or implants. Blood cultures 02/27 w/ Streptococcus agalactiae in the anaerobic bottles 10/13 Repeat BCxs 02/28-NGTD and 03/01 NGTD Wound culture with Staph species-sensitivities pending MRI right foot no OM or abscess, but with cellulitis ECHO normal, no valvular veg Appreciate Ortho consult-no need for surgical intervention, can weight bear on heel Ortho d/w Podiatry who also saw and agrees with current plan Fevers have resolved, leukocytosis resolved, erythema improved, still with significant edema but pain improving, CRP and Procal both trending downward Consult infectious disease appreciated--> plan for Augmentin 1000mg po tid x 2 weeks total for bacteremia and and add on doxy if MRSA from foot for total of 7 days Id wound cx MSSA, then Augmentin also will cover Continue daptomycin and Unasyn (changed from Zosyn) Follow wound culture final ID and sensi Follow blood cultures Follow CBC, BMP, CRP in the morning Continue on Tylenol 1000mg po q8h prn pain and oxycodone 5mg po q6h prn moderate-severe pain Elevate right leg above heart more frequently (2) Cellulitis of foot: Plan: As above (3) LAURA (acute kidney injury): Plan: Mild; BUN 40, creatinine 1.35, and EGFR 49.9 on arrival, now improved with crea tinine down to 1.07 after receiving IV fluid resuscitation Ok to resume home losartan and HCTZ Follow BMP (4) Diabetes: Plan: Recently diagnosed and is on metformin as an outpatient. Hemoglobin A1c here is 7.6% Continue NovoLog supplemental insulin and Lantus 5 units at bedtime for improved control in the setting of infection Continue diabetic diet and Accu-Cheks (5) Sleep apnea: Plan: Continue CPAP at bedtime (6) Hypertension: Plan: Blood pressures are elevated Resume home HCTZ and losartan Continue home baby aspirin Plan BPH-continue home tamsulosin, finasteride Disposition: Continued stay but can downgrade to med/surg, possible discharge to home tomorrow Full code VTE PPx: Lovenox SQ Admission and Anticipated Discharge Date Admission Date: February 28, 2024 Subjective Evaluated this morning, doing well, laying in bed. Pain MUCH improved but still with cellulitis and redness but reports much improved Discussed cxs, ID recommendations. Plan to call to [facility] and if finalized MSSA, can plan for dc on Augmentin to complete course. He reports he has appt for follow up with Dr Lorenz. Results & Data Results & Data Vital Signs (Past 12 Hours) Vital Signs Temp Pulse Resp BP Pulse Ox O2 Del Method 03/03/24 07:23 37.0 C 71 18 163/80 H 92 Room Air 03/03/24 06:13 165/82 H 03/02/24 21:00 37.3 C 75 18 175/93 H 94 Room Air PG Care Time/CCT Total # of Minutes Spent Total Time Spent with Patient: Total time spent is greater than 50% in coordination of care (as documented) at patient's floor/unit and/or counseling patient: Coding Diagnoses Septicemia A41.9 Cellulitis of foot L03.119 LAURA (acute kidney injury) N17.9 Diabetes E11.9 Sleep apnea G47.30 Hypertension I10
[2024-03-03] MEDS: hydroCHLOROthiazide 25 MG TAB PO SCH (08:31)
[2024-03-03] MEDS: MULTIVITAMIN TAB PO SCH (08:31)
--- NOTE | 2024-03-03 11:02 | Discharge Summary ---
Date of Service March 03, 2024 Admission HPI Per Admitting Provider Karsten is a pleasant 78yo male with PMH of newly diagnosed diabetes, HTN, BPH, and ascending aortic dilation. He presented at the behest of his cheesemaker on 02/27 for a cyst on the bottom of his right foot. Patient reports that the foot injury occurred 1.5 months ago, and initially he neglected it. He reports he developed a callus on the bottom of his right foot secondary to a pair of boots with rough soles. He initially did not do anything for the time, but then saw cheesemaker about a month ago who recommended insoles. Over the past few days he has developed severe pain in his right foot. The pain stays in the right foot without radiation above the ankle. He has been taking Tylenol Extra Strength twice daily for the pain. He rates the pain as 8/10 at present, but 10/10 at worst. He is unable to characterize it, but does note it is constant, and that pressure makes it worse. Foot is erythematous, swollen, and warm to touch. He is unable to bear weight on his right foot. He also endorses fever in the past couple nights around 101 F, as well as night sweats. He was started on doxycycline 100 mg twice daily 3 days ago, and has taken approximately 5 doses. Patient reports he is a newly diagnosed diabetic, and only recent started taking metformin within the past couple weeks. He only took his hydrochlorothiazide this morning, no other medications. Only recent changes in medications with the doxycycline and the metformin. No recent change in diet, but patient reports he has not been eating much the past few days; has been drinking plenty of fluids. No prior history of injuries to the foot. He denies smoking, alcohol use, tobacco use. Patient is hypertensive at 104/56, and mildly tachycardic around 100 bpm at time of admission; vitals otherwise stable. ED course: Vancomycin 2750 mg IV Zosyn 4.5 g IV NSS 1500mL IV ROS: Patient endorses severe right foot pain/erythema/swelling, fever (101 F taken at home), night sweats, lightheadedness, nausea, dry heaves, and mild numbness and tingling in the right foot. Patient denies chills, headache, changes in vision, chest pain, chest pressure, chest palpitations, SOB, cough, pleuritic CP, vomiting, diarrhea, blood in urine or stool, or changes in urinary or bowel habits. Admission Exam Per Admitting Provider General: Mild distress secondary to foot pain; pleasant affect; non-toxic appearing; well-nourished; cooperative; SpO2 95% on RA HEENT: normocephalic, atraumatic; no scleral icterus; PERRLA; moist mucus membrane; vision and hearing grossly intact Neck: supple; no lymphadenopathy; trachea midline Skin: warm, dry without signs of tenting; no cyanosis; no rashes, bruising, lesions, or erythema noted CV: chest wall NTP; RRR; S1/S2 normal; no murmurs/rubs/gallops; pulses intact and symmetric at radial, DP, and PT Lungs: no acute respiratory distress; symmetrical chest wall expansion; clear breath sounds across all lung castellon w/o adventitious sounds; no wheezing ABD: Soft, NTP; BS present; no rebound/guarding; no distention MSK: no tics or fasciculations; +2 pitting edema in the lower extremities bilaterally extending to the mid calf Right foot: Erythematous, swollen, and warm to touch (see photos below); notable callus on the bottom of the right foot below the third metatarsal Neuro: A&Ox3; normal mood and affect; fluent speech; no focal deficits; sensation intact and symmetric in the LEs b/l assessed via light touch Principal Diagnosis Septicemia, Cellulitis - RIGHT Foot Discharge Exam Constitutional WD/WN, vitals as above Neck trachea midline, mmm Respiratory normal respiratory effort, lungs clear to auscultation Cardiovascular Rate/Rhythm: regular rate and regular rhythm Heart Sounds: no murmur Extremities: + edema (2+ pitting in Right foot and ankle, improving) Gastrointestinal (Abdomen) normal bowel sounds, soft, nontender, no hepatosplenomegaly Musculoskeletal Ankle: + ankle abnormal to inspection (Significant 2-3+ pitting edema of the right foot and ankle --IMPROVING) and + skin erythema (Right dorsal foot, slightly receded from line of demarcation) Skin + lesion (Third MTP head plantar surface with plantar wart/callus, no drainage) and + erythema (right dorsal foot, receding from marked line,becoming darker) Psychiatric A+Ox3, euthymic affect Discharge Data Allergies Allergy/AdvReac Type Severity Reaction Status Date / Time No Known Allergies Allergy Verified 02/28/24 14:58 Consultations 02/28/24 15:39 ED Decision to Admit Stat 02/29/24 13:27 Consult Orthopedic Surgery Routine 03/01/24 09:13 Consult Infectious Diseases Routine 03/02/24 17:39 Consult Podiatry Routine Ordered Studies Chest X-Ray 02/28/24 12:39 SINGLE VIEW CHEST CLINICAL HISTORY: Sepsis. FINDINGS: 2 PA chest radiographs are obtained. No prior studies are available for comparison at the time of dictation. The cardiomediastinal silhouette is top normal for projection. There is mild left basilar atelectasis. The lungs and pleural spaces are otherwise clear. No pneumothorax is seen. The skeletal structures are osteopenic. The bony thorax is grossly intact. Mild degenerative change is noted in the shoulders and spine. IMPRESSION: No active disease in the chest. ACT 112: Negative or not required by law. Electronically signed by: Navid Franco M.D. 02/28/2024 2:15 PM Foot MRI 02/29/24 13:27 MRI OF THE RIGHT FOREFOOT COMBO CLINICAL HISTORY: Cellulitis. Bacteremia. COMPARISON STUDY: No priors. TECHNIQUE: MRI of the right forefoot is performed utilizing various T1 and T2- weighted sequences in the axial, sagittal, and coronal planes. Contrast-enhanced sequences are acquired following the IV administration of 10.2 mL of Gadavist. Note that interpretation is suboptimal without plain film correlate. FINDINGS: A marker has been placed along the plantar aspect of the forefoot at the level of the second and third metatarsal heads. A tiny wound is seen at this site, best seen on axial image #34. Mild soft tissue edema at this site likely represents cellulitis. No fluid collection is seen to suggest abscess. The visualized flexor and extensor tendons appear intact. Imaged portions of the plantar fascia are normal. There is no underlying marrow change to suggest osteomyelitis. There is drop in T1 signal within the dorsal aspect of the navicular, best seen on sagittal image #23. There is no corresponding marrow edema and this may represent sclerosis. There is a joint effusion at the first metatarsophalangeal joint. The Lisfranc ligament is intact. Nonspecific fluid is partially visualized around the talus, as well as between the calcaneus and cuboid. IMPRESSION: 1. There is no MRI evidence of osteomyelitis as clinically queried. 2. Findings suggest cellulitis of the forefoot with a small plantar wound at the level of the second and third metatarsal heads. 3. No organized fluid collection is seen to suggest abscess. 4. There is nonspecific drop in T1 signal within the superior aspect of the navicular, which may represent sclerotic change. There is no corresponding marrow edema. Radiographic correlation is recommended. 5. There is a joint effusion at the first metatarsophalangeal joint. 6. Nonspecific fluid is partially visualized around the talus, as well as between the calcaneus and the cuboid. This may also relate to joint effusions. 7. Additional findings as above. Dictated: 02/29/2024 6:35 PM Transcribed: 02/29/2024 7:14 PM Ryland [id number] [email or web address] Electronically signed by: Navid Franco M.D. 02/29/2024 8:21 PM Hospital Course (1) Septicemia: Right foot wound and cellulitis as source. With plantar wart that was recently debrided on 2 occasions in the podiatry office that is now draining some fluid on admission with surrounding foot cellulitis and significant edema. With leukocytosis at 16.22 on arrival, febrile at home, tachycardia, soft BPs on arrival, procalcitonin elevated at 5.09, Lactate WNL at 1.8, CRP elevated at 25, ESR elevated at 53 He has no artificial joints or implants. Blood cultures 02/27 w/ Streptococcus agalactiae in the anaerobic bottles 10/13 Repeat BCxs 02/28-NGTD and 03/01 NGTD Wound culture with Staph species initially, pending through AM 03/03 MRI right foot no OM or abscess, but with cellulitis ECHO normal, no valvular veg Appreciate Ortho consult -no need for surgical intervention, can weight bear on heel Ortho d/w Podiatry who also saw and agrees with current plan Fevers have resolved, leukocytosis resolved, erythema improved, still with significant edema but pain improving, CRP and Procal both trending downward Consulted infectious disease appreciated--> plan for Augmentin 1000mg po tid x 2 weeks total for bacteremia and and add on doxy if MRSA from foot for total of 7 days (foot cx w/ MSSA on FINAL) Dapto/Zosyn --> Unasyn alone AM 03/03 Continue daptomycin and Unasyn (changed from Zosyn) while finalized foot Cx pending Repeat blood cultures NGTD x 48 hours, patient CRP also continuing to trend down and low grade temp but again CRP trending down/no leukocytosis and blood cultures on repeat remain negative and patient wanting to go home Asked PT to see prior to dc to eval for any needs, cleared for home with support ( is RN), but also provided surgical shoe for edema/swelling/comfort w/ walking to offload. WBAT per ortho/podiatry and per patient already has appt w/ Dr Lorenz at discharge. Per recommendations w/ ID and cultures, plan to send patient on Augmentin 1gm TID through 03/13 to complete the course along with probiotic. To monitor for any diarrhea/alert primary care. Pain has been controlled w/ tylenol alone without need for oxycodone (2) Cellulitis of foot: As above, improving, within markings (3) LAURA (acute kidney injury): Mild; BUN 40, creatinine 1.35 on arrival with EGFR 49.9 IVF resusicitation on admission and home losartan/HCTZ resumed and renal function stable 20/0.95 prior to discharge (4) Diabetes: Recently diagnosed and is on metformin as an outpatient. Hemoglobin A1c here is 7.6% Lantus 5u HS and sliding scale while inpatient Metformin resumed at ks, outpt f/u (5) Sleep apnea: Continued CPAP HS (6) Hypertension: Blood pressures are elevated, suspect some aspect from pain but controlled w/ tylenol and improved on exam Home HCTZ/losartan now resumed since Laura resolved Continue home meds at ks Plan BPH-continued home tamsulosin, finasteride. No issues w/ retention reported DVT proph: Lovenox SQ while inpatient Discharged home w/ and surgical shoe for offloading, Augmentin TID as outlined and follow up with podiatry/PCP at discharge Total Time Total Time Spent Total Time Spent (In Minutes): 45 Discharge Plan Discharge Items Patient Disposition: Home - Self-Care Reason For Visit: RIGHT FOOT INFECTION Discharge Diagnosis: Septicemia/Bacteremia, Cellulitis RIGHT foot Goals: You have been hospitalized for an acute medical problem. During your stay at [facility], we have made an effort to correct the problem that brought you to the hospital while keeping you as comfortable as possible. Medications were used to bring your condition under control and your discharge instructions will include directions for any medications you should take after leaving the hospital. Please make sure you see your Primary Care Provider as part of your follow up plan. Activity: As commented below Activity Comment: weight bearing as tolerated with surgical shoe Non-emergency contact: Primary Care Provider and Surgeon Call non-emergency contact if: you have any medication questions, your symptoms worsen, your pain is not controlled and you have a fever Follow-up/Referrals: Chau Yusuf [Primary Care Provider] - 03/10/24 2:00 pm Verónica Lorenz DPM [Physician] - 03/09/24 1:15 pm Diet: Carb Consistent or DM2 Addtl Attending Provider Instructions: You have been hospitalized with a cellulitis and found to have bacteria in your blood as well, likely from the foot as a source. Orthopedics, podiatry, and infectious disease were consulted and your repeat blood cultures have been NEGATIVE. Per infectious disease, you are being sent on AUGMENTIN 1gm BY MOUTH THREE TIMES DAILY through MARCH 13 as your culture grew MSSA (NOT MRSA). We have also sent a probiotic but notify your provider if any significant diarrhea as antibiotics can increase risk for cdiff. Please keep leg elevated and use surgical shoe for offloading. Please follow up with primary care and Dr Lorenz in the next 7-10 days after discharge to monitor your progress. Please return to the ER with any worsening pain, fever, redness or for any other symptoms concerning for you. It has been a pleasure being a part of the medical team providing for you while you have been in the hospital. Take care! Addtl Rn Psychiatric Provider Instructions: Orthopedic/podiatry instructions: -Weight-bear as tolerated on your right heel. -Wear special shoe wear or boot when out of bed. -Dressing changes daily or on an as-needed basis. -Continue antibiotics as per infectious disease physician. -Elevate right foot above your heart to relieve pain and swelling. -Call Dr. Reid Rockwell's office ([phone]) with any increased pain, swelling, fevers, chills or drainage from the wound, or need to confirm or reschedule your appointment. -Follow-up with Dr. Reid Rockwell as scheduled. Pending Studies at Discharge: Yes Studies:: Repeat blood cultures -- no growth to date Stand-Alone Forms: My [facility], Smoking Cessation Medications and DC Order Prescriptions: New amoxicillin-pot clavulanate [Augmentin XR] 1,000-62.5 mg tablet extended release 12 hr 1 tab PO TID 10 Days Qty: 31 0RF Lactobacillus acidophilus 1 billion cell capsule 1,000 mmu cells PO DAILY Qty: 10 0RF Continued finasteride 5 mg tablet 5 mg PO DAILY Qty: 90 3RF multivitamin Tablet 1 tab PO QAM aspirin 81 mg Tablet,Delayed Release (Dr/Ec) 81 mg PO QPM ascorbic acid (vitamin C) [Vitamin C] 500 mg Tablet 500 mg PO QAM tamsulosin 0.4 mg Capsule 0.4 mg PO QAM naproxen sodium [Aleve] 220 mg Tablet 220 mg PO DAILY PRN (Reason: Pain, Mild) Hold Instructions: Resume on 10/26/23. hold until completed with Eliquis glucosamine sulfate 2KCl [Glucosamine Relief] 1,000 mg Tablet 2,000 mg PO QAM turmeric root extract 500 mg Capsule 500 mg PO QAM metformin 500 mg tablet 500 mg PO BID Rx Instructions: PER PT'S SPOUSE "HAVEN'T GIVEN TO PT, NOT EATING VERY MUCH". hydrochlorothiazide 25 mg Tablet 25 mg PO QAM losartan 100 mg Tablet 100 mg PO QPM Discharge Orders: Discharge Order (Routine); Ordered 03/03/24 Ordered By: Naima Ortiz/Other Patient Handouts: Nutrition for Wound Healing, Diabetes: Meal Planning, Type 2 Diabetes Admission Data Admit Date/Time: 02/28/24 16:36 Attending Provider: Jony Tilley Admit Provider: Trevon Howard Primary Care Provider: Chau Yusuf Other Providers: Trevon Howard; Geoffrey Khan; Ermelinda Tai; Adilia Mujica; Connie Amin; Natalie Vázquez; Angelica Matias; Petty To; Verónica Huang Other Interventions: Discharge Summary Assessment (RN) Last Done: 03/03/24 11:50 Supervising Physician Co-Signing Physician Notes The patient was not seen by me. The chart was reviewed. Case discussed with ADINA Palafox. Agree with assessment and plan Coding Level of Care Code 62189 INP/OBS DISCH >30 MIN Diagnoses Septicemia A41.9 Cellulitis of foot L03.119 LAURA (acute kidney injury) N17.9 Diabetes E11.9 Sleep apnea G47.30 Hypertension I10
== END 2024-03-03 13:50 | disposition home or self-care (01) | DRG 872 ==
LOC: ED 12:33 → SUATTDRO 16:36 → 2S 16:36 → 3N 03-02 20:49